=== PATIENT | male | born 1960 | race Caucasian/White ===

== ENCOUNTER → 2017-06-20 08:13 | Outpatient (CLI) | payer OTHER, SELFPAY ==
--- NOTE | 2017-06-20 09:00 | RAD_ITS ---
STUDY: X-RAY - THORACIC SPINE REASON FOR EXAM: Male, 57 years old. Back pain for several weeks. TECHNIQUE: History view(s) of the thoracic spine were obtained. COMPARISON: None. FINDINGS: Normal kyphosis of the thoracic spine. There is no substantial scoliosis. There is multilevel endplate spondylosis of the thoracic vertebrae. There is multilevel disc space narrowing of the thoracic spine. There is no evidence of acute fracture or loss of vertebral axial height. The soft tissue structures are unremarkable. RAD/Thoracic Spine 3 Views IMPRESSION: Degenerative changes along the thoracic spine. Electronically Signed: Alex Escobar DO at 16:51 EDT Tel [phone], Service support ,
== END ==
PROVIDERS: Family Provider Family Medicine; PCP Family Medicine; Visit Provider Family Medicine
DX: M54.6 Pain in thoracic spine (principal)
CPT/HCPCS: 72072

== ENCOUNTER → 2017-07-19 09:43 | Outpatient (CLI) | payer OTHER, SELFPAY ==
--- NOTE | 2017-07-19 09:43 | DT_ITS ---
This patient was seen during an EMR downtime July 15, 2017 - July 22, 2017. This patient may have a combination of paper and electronic documentation or all paper documentation. All documentation is viewable within the e-chart portion of [employer] for each patient visit.
[2017-07-19 14:22] LABS: PSA,Total - Annual Screen 3.45 ng/mL (0.00-4.00)
== END ==
PROVIDERS: Family Provider Family Medicine; PCP Family Medicine; Visit Provider Urology
DX: Z12.5 Encounter for screening for malignant neoplasm of prostate (principal)
CPT/HCPCS: 36415; 84153; G0103

== ENCOUNTER → 2018-01-16 09:25 | Outpatient (CLI) | payer OTHER, SELFPAY ==
--- NOTE | 2018-01-16 09:29 | RAD_ITS ---
STUDY: X-RAY - RIGHT KNEE REASON FOR EXAM: Male, 57 years old. Pain, no known injury TECHNIQUE: 4 view(s) of the knee. COMPARISON: None. FINDINGS: Normal visualized distal femur. Normal visualized proximal tibia and fibula. Normal proximal tibiofibular articulation. There is mild degenerative arthrosis of the medial femorotibial compartment. There is mild degenerative arthrosis of the lateral femorotibial compartment. There is mild degenerative arthrosis of the patellofemoral articulation. The soft tissue structures are unremarkable. RAD/Knee 4 or More Views IMPRESSION: Mild tricompartmental degenerative changes of the right knee. Electronically Signed: Shashi Pittman MD at 22:28 EST , Service support ,
== END ==
PROVIDERS: Family Provider Family Medicine; PCP Family Medicine; Referring Provider Family Medicine; Visit Provider Family Medicine
DX: M25.561 Pain in right knee (principal)
CPT/HCPCS: 73564

== ENCOUNTER → 2018-02-20 09:17 | Outpatient (CLI) | payer OTHER, SELFPAY ==
[2018-02-20 10:59] LABS: ALB/GLOB Ratio 1.1 RATIO (0.9-2.4); AST(SGOT) 21 U/L (15-37); Alanine Aminotransfer ALT/SGPT 43 U/L (16-61); Albumin, Serum 3.8 g/dL (3.2-5.0); Alkaline Phosphatase 85 U/L (45-117); Anion Gap 11 (5-15); BUN 12 mg/dL (7-18); BUN/Creat Ratio 15.4 RATIO (10-20); Calcium,Total 8.9 mg/dL (8.5-10.1); Chloride 103 mmol/L (98-107); Cholesterol 142 mg/dL (200); Creatinine, Serum 0.78 mg/dL (0.70-1.30); EST Glomerular Filtration Rate 110 mL/min (>60); Est Glom Filt Rate - Afr Amer 133 mL/min (>60); Globulin 3.5 g/dL (2.2-4.2); Glucose 112 mg/dL (74-106); High Density Lipoprotein 53 mg/dL; Protein, Total 7.3 g/dL (6.4-8.2); Sodium Level 140 mmol/L (136-145); Thyroid Stim Hormone (TSH) 1.09 uIU/mL (0.358-3.74); Triglycerides 80 mg/dL; Very Low Density Lipoprotein 16 mg/dL (5-40)
== END ==
PROVIDERS: Family Provider Family Medicine; PCP Family Medicine; Visit Provider Family Medicine
DX: E11.9 Type 2 diabetes mellitus without complications (principal); Z12.5 Encounter for screening for malignant neoplasm of prostate
CPT/HCPCS: 36415; 80053; 80061; 84403; 84443

== ENCOUNTER → 2019-03-12 09:39 | Outpatient (CLI) | payer OTHER, SELFPAY ==
[2019-03-12 12:45] LABS: ALB/GLOB Ratio 1.2 RATIO (0.9-2.4); AST(SGOT) 16 U/L (15-37); Alanine Aminotransfer ALT/SGPT 39 U/L (16-61); Albumin, Serum 3.8 g/dL (3.2-5.0); Alkaline Phosphatase 88 U/L (45-117); Anion Gap 7 (5-15); BUN 14 mg/dL (7-18); BUN/Creat Ratio 18.4 RATIO (10-20); Chloride 104 mmol/L (98-107); Creatinine, Serum 0.76 mg/dL (0.70-1.30); EST Glomerular Filtration Rate 113 mL/min (>60); Est Glom Filt Rate - Afr Amer 136 mL/min (>60); Globulin 3.2 g/dL (2.2-4.2); Glucose 101 mg/dL (74-106); PSA,Total - Annual Screen 4.54 ng/mL (0.00-4.00); Potassium 4.4 mmol/L (3.5-5.1); Sodium Level 139 mmol/L (136-145); Thyroid Stim Hormone (TSH) 0.95 uIU/mL (0.358-3.74)
== END ==
PROVIDERS: PCP Family Medicine; Referring Provider Family Medicine; Visit Provider Family Medicine
DX: E11.9 Type 2 diabetes mellitus without complications (principal); Z12.5 Encounter for screening for malignant neoplasm of prostate
CPT/HCPCS: 36415; 80053; 84153; 84443; G0103

== ENCOUNTER → 2019-08-24 16:25 | Outpatient (CLI) | payer OTHER, SELFPAY | PROVIDERS: PCP Family Medicine; Referring Provider Nurse Practitioner Adult Health; Visit Provider Nurse Practitioner Adult Health | DX: R97.20 Elevated prostate specific antigen [PSA] (principal) | CPT/HCPCS: 36415; 84153 ==

== ENCOUNTER → 2019-09-29 | Outpatient (CLI) | payer OTHER, SELFPAY ==
--- NOTE | 2019-09-29 | IMM_PTH ---
PATIENT: MELISA ACHARYA LOC: [place] U#:[id number] AGE/SX: 59/M ROOM: RE09/29/[address]: Dr. Wesley Hall MD : 1960 BED: DIS: 09/29/2019 SPEC #: [id number] RECD: 09/30/19 12:22 STATUS: HAYES RELaura #: [id number] ROSHAN: 09/29/19 00:[address]: Wesley Hall DEPT: IMMUNOHISTOCHEMISTRY RECD BY: Swati Davis ENTERED: 09/30/19 12:24 SP TYPE: IMMUNO OTHR DR: Dr. Zackery Huber MD Tissues: D - PROSTATE LEFT E - PROSTATE LEFT Procedures: 34BE12 (add) P40 (add) 34BE12 (initial) PHYSICIAN & INSTITUTION [place] [id number] SPECIMEN INFORMATION: Tissue Source: D - Left prostate, apex, core biopsy, E - Left prostate, mid, core biopsy Clinical Info: Elevated PSA Specimen Number: [id number] D & E CPT code: 24820, 50107 x3 METHODOLOGY: Deparaffinized sections of prefer/formalin-fixed tissue or PAP/DQ stained slides are incubated with monoclonal/polyclonal antibodies/oligonucleotide probes. Localization is made via biotin free immunoperoxidase method. Appropriate controls are performed and reacted as expected. Results on target cell population are indicated in the following table: RESULTS: ANTIBODY / CLONE RESULT Block D P40 (BC28) negative 34BE12 (34BE12) negative Block E P40 (BC28) negative 34BE12 (34BE12) negative These tests were developed and their performance characteristics determined by [facility]. They may not have been cleared or approved by the U.S. Food and Drug Administration. The FDA has determined that such clearance or approval is not necessary. The above immunohistochemical/dualISH markers are ordered and reviewed by the Pathologist. INTERPRETATION: D. Left prostate, apex, core biopsy: Focal atypical small acinar proliferation. See comment. E. Left prostate, mid, core biopsy: Focal atypical small acinar proliferation. See comment. EVELINA:kaylan 10/01/19 Comment: D & E - Atypical focus consists of 2-3 glands and shows minimal atypia.
--- NOTE | 2019-09-29 08:00 | PROSBIL_PTH ---
PATIENT: MELISA ACHARYA LOC: [place] U#:[id number] AGE/SX: 59/M ROOM: RE09/29/[address]: Dr. Wesley Hall MD : 1960 BED: DIS: 09/29/2019 SPEC #: [id number] RECD: 09/29/19 12:47 STATUS: HAYES RELaura #: [id number] ROSHAN: 09/29/19 08:[address]: Wesley Hall DEPT: SURGICAL PATHOLOGY RECD BY: Gary Jang ENTERED: 09/29/19 12:48 SP TYPE: PROST BX LOREE DR: Dr. Zackery Huber MD Tissues: A - PROSTATE RIGHT B - PROSTATE RIGHT C - PROSTATE RIGHT D - PROSTATE LEFT E - PROSTATE LEFT F - PROSTATE LEFT Procedures: PROSTATE BX HEADER OPERATION: Prostate biopsy PRE-OP DIAGNOSIS: Elevated PSA TISSUE SUBMITTED: A - Right apex, B - Right mid, C - Right base, D - Left apex, E - Left mid, F - Left base MICROSCOPIC DIAGNOSIS A. Right prostate, apex, core biopsy: Prostatic tissue, negative for malignancy. B. Right prostate, mid, core biopsy: Prostatic tissue, negative for malignancy. Focal mild acute and chronic inflammation. C. Right prostate, base, core biopsy: Focal minimal high-grade prostatic intraepithelial neoplasia (HGPIN). Focal mild acute and chronic inflammation. D. Left prostate, apex, core biopsy: Focal atypical small acinar proliferation (TONY). See comment. E. Left prostate, mid, core biopsy: Focal atypical small acinar proliferation (TONY). Focal mild chronic inflammation. See comment. F. Left prostate, base, core biopsy: Prostatic tissue, negative for malignancy. SJ:kaylan 09/30/19 COMMENT D & E. Immunohistochemistry ([id number]) supports the above diagnosis. Atypical focus consists of only 2-3 glands and shows minimal atypia. MICROSCOPIC DESCRIPTION Slides are reviewed. GROSS DESCRIPTION A - Received is one container designated prostate, right apex. The specimen consists of one elongated fragment of light mauro-white soft tissue measuring 1 cm in length and 0.1 cm in diameter. The specimen is totally submitted in one cassette. B - Received is one container designated prostate, right mid. The specimen consists of three elongated fragments of light mauro-white soft tissue measuring 0.5 to 1.5 cm in length and 0.1 cm in diameter. The specimen is totally submitted in one cassette. C - Received is one container designated prostate, right base. The specimen consists of two elongated fragments of light mauro-white soft tissue each measuring 1.3 cm in length and 0.1 cm in diameter. The specimen is totally submitted in one cassette. D - Received is one container designated prostate, left apex. The specimen consists of one elongated fragment of light mauro-white soft tissue measuring 0.7 cm in length and 0.1 cm in diameter. The specimen is totally submitted in one cassette. E - Received is one container designated prostate, left mid. The specimen consists of two elongated fragments of light mauro-white soft tissue each measuring 1.2 cm in length and 0.1 cm in diameter. The specimen is totally submitted in one cassette. F - Received is one container designated prostate, left base. The specimen consists of two elongated fragments of light mauro-white soft tissue each measuring 1.2 cm in length and 0.1 cm in diameter. The specimen is totally submitted in one cassette. / SJ:rg 09/29/19 TC:5 CPT: 83084 x6
== END | disposition home or self-care (01) ==
LOC: LABSPEC 11:14
PROVIDERS: PCP Family Medicine; Referring Provider Urology; Visit Provider Urology
DX: R97.20 Elevated prostate specific antigen [PSA] (principal)
CPT/HCPCS: 88305; 88341; 88342; G0416

== ENCOUNTER → 2019-10-16 08:08 | Outpatient (CLI) | payer OTHER, SELFPAY ==
--- NOTE | 2019-10-16 08:11 | CT_ITS ---
STUDY: CT ABDOMEN AND PELVIS WITHOUT CONTRAST REASON FOR EXAM: Male, 59 years old. Bladder calculus POSSIBLY FOUND ON SCOPE RADIATION DOSAGE (If Supplied By Facility): CTDIvol = ( 19.06 ) mGy, DLP = ( 1128.67 ) mGycm TECHNIQUE: Transaxial images were obtained from the dome of the diaphragm to the symphysis pubis without oral contrast, and without intravenous contrast. Sagittal and coronal images were reconstructed. Individualized dose optimization techniques were used for this CT. COMPARISON: None. FINDINGS: Minimal increased markings at the lung bases suggestive of mild degree of scarring. The visualized portions of the heart are within normal limits. Normal liver. Normal gallbladder and extrahepatic biliary system. Normal spleen. Normal pancreas. Normal bilateral adrenal glands. Normal right kidney. Normal left kidney. There is a small hiatal hernia. Normal small intestine. There are scattered colonic diverticula consistent with diverticulosis. The appendix is visualized and appears normal. Normal abdominal aorta. Normal inferior vena cava. Normal retroperitoneum. Normal urinary bladder. There is enlargement of the prostate gland. Prostatic calcifications. It measures 6.3 cm x 6.6 cm. This causes an indentation at the bladder base. There is a 7 mm calculus at the base of the bladder on the left side just distal to the ureterovesical junction. Tiny calculi are also seen along the posterior aspect of the bladder base. There is a small umbilical hernia containing fat. There are degenerative changes of the visualized lumbar spine. CT/Abdomen/Pelvis without Cont IMPRESSION: Multiple bladder stones. Electronically Signed: Emmett Rudd, at 9:10 EDT , Service support ,
== END ==
PROVIDERS: PCP Family Medicine; Referring Provider Urology; Visit Provider Urology
DX: N21.0 Calculus in bladder (principal)
CPT/HCPCS: 74176

== ENCOUNTER → 2019-10-20 16:45 | Outpatient (CLI) | payer OTHER, SELFPAY ==
--- NOTE | 2019-10-20 16:52 | EKG12_ITS ---
Test Reason : PRE-OP Blood Pressure : / mmHG Vent. Rate : 082 BPM Atrial Rate : 082 BPM P-R Int : 146 ms QRS Dur : 090 ms QT Int : 374 ms P-R-T Axes : 063 -15 044 degrees QTc Int : 436 ms Normal sinus rhythm Normal ECG Confirmed by SOFIA CALDERON, MAYRA ([id number]), desk editor TAMI PAREKH ([id number]) on 10/23/2019 9:13:18 AM Referred By: Wesley Hall Confirmed By:DOMINICK BLACK MD
[2019-10-20 17:08] LABS: Hematocrit 46.8 % (40-54); Hemoglobin 15.2 g/dL (13.0-16.5); Mean Corp Hgb Conc 32.5 g/dL (32-36); Mean Corpuscular Hgb 30.8 pg (27.0-32.0); Mean Corpuscular Volume 94.7 fL (80-94); Mean Platelet Vol. 9.6 fl (6.2-12.0); Platelet Count 314 K/mm3 (150-450); RBC Distribution Width CV 12.3 % (11.6-14.6); Red Blood Count 4.94 M/mm3 (4.6-6.2); White Blood Count 11.8 K/mm3 (4.4-11.0)
[2019-10-20 17:49] LABS: Anion Gap 4 (5-15); BUN 12 mg/dL (7-18); BUN/Creat Ratio 14.9 RATIO (10-20); Calcium,Total 9.4 mg/dL (8.5-10.1); Chloride 110 mmol/L (98-107); EST Glomerular Filtration Rate 105 mL/min (>60); Est Glom Filt Rate - Afr Amer 127 mL/min (>60); Glucose 104 mg/dL (74-106); Potassium 4.1 mmol/L (3.5-5.1); Sodium Level 142 mmol/L (136-145)
== END ==
PROVIDERS: PCP Family Medicine; Referring Provider Urology; Visit Provider Urology
DX: Z11.59 Encounter for screening for other viral diseases (principal); N21.0 Calculus in bladder
CPT/HCPCS: 36415; 80048; 85027; 93005

== ENCOUNTER → 2019-10-22 10:13 | Outpatient (CLI) | payer OTHER, SELFPAY | PROVIDERS: PCP Family Medicine; Referring Provider Urology; Visit Provider Urology | DX: Z11.59 Encounter for screening for other viral diseases (principal) | CPT/HCPCS: 87635; C9803; U0003 ==

== ENCOUNTER → 2019-11-16 08:30 | Outpatient (CLI) | payer OTHER, SELFPAY ==
[2019-11-16 10:21] LABS: ALB/GLOB Ratio 1.1 RATIO (0.9-2.4); AST(SGOT) 17 U/L (15-37); Alanine Aminotransfer ALT/SGPT 31 U/L (16-61); Albumin, Serum 3.8 g/dL (3.2-5.0); Alkaline Phosphatase 84 U/L (45-117); Anion Gap 3 (5-15); BUN 13 mg/dL (7-18); BUN/Creat Ratio 16.1 RATIO (10-20); Chloride 105 mmol/L (98-107); Cholesterol 153 mg/dL (200); Creatinine, Serum 0.81 mg/dL (0.70-1.30); EST Glomerular Filtration Rate 105 mL/min (>60); Est Glom Filt Rate - Afr Amer 127 mL/min (>60); Globulin 3.5 g/dL (2.2-4.2); Glucose 127 mg/dL (74-106); High Density Lipoprotein 64 mg/dL; Potassium 4.5 mmol/L (3.5-5.1); Protein, Total 7.3 g/dL (6.4-8.2); Sodium Level 137 mmol/L (136-145); Thyroid Stim Hormone (TSH) 1.44 uIU/mL (0.358-3.74); Triglycerides 118 mg/dL; Very Low Density Lipoprotein 24 mg/dL (5-40)
== END ==
PROVIDERS: PCP Family Medicine; Visit Provider Family Medicine
DX: E11.9 Type 2 diabetes mellitus without complications (principal)
CPT/HCPCS: 36415; 80053; 80061; 84443

== ENCOUNTER → 2019-11-30 12:28 | Outpatient (CLI) | payer OTHER, SELFPAY ==
--- NOTE | 2019-11-30 13:00 | CT_ITS ---
STUDY: CT RIGHTLOWER EXTREMITY WITHOUT CONTRAST REASON FOR EXAM: Male, 59 years old. RIGHT KNEE REPLACEMENT ON Dec. RADIATION DOSAGE (If Supplied By Facility): CTDIvol = ( 18.62 ) mGy, DLP = ( 1397.27 ) mGycm TECHNIQUE: Thin section transaxial imaging of the ankle was obtained, with sagittal and coronal reconstructed images. Individualized dose optimization techniques were used for this CT. COMPARISON: Right knee x-ray dated January 16, 2018. Hip findings: Normal hip joint without articular joint space narrowing. There is lateral osteoarthritic spurring and subchondral cystic changes of the acetabular rim. Normal labrum. Normal femoral head. Normal femoral neck and intratrochanteric region. No visualized fracture. Normal gluteus minimus, medius and iliopsoas tendons and distal insertions. Normal superior and inferior pubic rami. Normal pubic symphysis. Normal ischial tuberosity. Normal origin of the hamstring tendons. Normal visualized iliac wing, sacroiliac joint, and sacral ala. Normal visualized soft tissue structures of the pelvis. Knee findings: Small corticated ossicle/loose bodies are seen at the periphery of the medial lateral aspects of the knee joint which could be related to degenerative changes or sequela from prior trauma. The medial joint capsule is also slightly distended or the loose bodies are present. There is moderate to severe narrowing in the medial compartment with mild secondary osteoarthritic changes.. Mild cortical spurring is present at the periphery of the lateral compartment. Mild narrowing of patellofemoral compartment with osteophytic spurring and a small joint effusion. No visualized acute fractures. Normal proximal tibiofibular articulation. There is no joint effusion. There is no demonstrated abnormal enhancement. The quadriceps tendon is grossly normal. The patellar tendon is grossly normal. Normal Hoffa''s fat pad. The soft tissues are unremarkable. Ankle findings: Mild to moderate plantar calcaneal spur formation noted. Mild enthesopathy is seen at the Achilles tendon insertion site. There are small corticated ossicles of the plantar fascia which is also thickened at the central cord compatible with sequelae of chronic plantar fasciitis. No visualized fractures. Normal visualized distal tibia and fibula. Normal tibiotalar articulation and talar dome. Normal talus, calcaneus, navicular and cuboid tarsal bones. Normal subtalar, talonavicular and calcaneocuboid articulations. Normal navicular-cuneiform, cuneiform tarsal bones and intercuneiform articulations. Normal tarsometatarsal articulations and visualized metatarsi. The soft tissue structures are grossly normal. CT/Extremity Lower without Contra IMPRESSION: 1. Degenerative changes of the knee and ankle joints. 2. No fracture or osteonecrosis is seen. 3. Unremarkable right hip joint. Electronically Signed: Gaurav Barajas MD at 16:46 EDT , Service support ,
== END ==
PROVIDERS: PCP Family Medicine; Referring Provider Specialist; Visit Provider Specialist
DX: M21.161 Varus deformity, not elsewhere classified, right knee (principal)
CPT/HCPCS: 73700

== ENCOUNTER 2019-12-16 05:24 | Day surgery (SDC) | payer OTHER, SELFPAY ==
[2019-11-30 13:18] LABS: Absolute Lymphocyte Count 2.32 X10^3/uL (0.83-4.51); Absolute Neutrophil Count 5.8 X10^3/uL (2.0-7.7); Basophil# 0.03 X10^3/uL; Basophil% 0.3 % (0-1); Eosinophil# 0.25 X10^3/uL; Eosinophils% 2.8 % (0-5); Hematocrit 46.3 % (40-54); Hemoglobin 14.9 g/dL (13.0-16.5); Lymphocyte # 2.32 X10^3/ul (4.0); Lymphocyte % 25.6 % (19-41); Mean Corp Hgb Conc 32.2 g/dL (32-36); Mean Corpuscular Hgb 30.8 pg (27.0-32.0); Mean Corpuscular Volume 95.9 fL (80-94); Mean Platelet Vol. 9.7 fl (6.2-12.0); Monocyte# 0.69 X10^3/uL; Monocyte% 7.6 % (0-10); NRBC Flagged by Analyzer 0 % (0-5); Neutrophil # 5.75 X10^3/uL (2.7-7.7); Neutrophil % 63.5 % (47-70); Platelet Count 307 K/mm3 (150-450); RBC Distribution Width SD 42.1 fl (35.1-43.9); Red Blood Count 4.83 M/mm3 (4.6-6.2); White Blood Count 9.1 K/mm3 (4.4-11.0)
--- NOTE | 2019-12-01 21:23 | HP.PCM_ITS ---
History and Physical History and Physical [facility] Patient Name: Shashi Chavez : 1960 From: DEBBIE CONNOR PA-C DATE OF SURGERY: 12/16/2019 SCHEDULED PROCEDURE: right total knee arthroplasty HISTORY OF PRESENT ILLNESS: Preoperative history and physical exam was performed on November 30, 2019. This is a 59-year-old male who has been having ongoing pain in his right knee for over 3 years. Patient's pain is been constant and aching. He has increased pain going up and down stairs. His pain is located over the medial joint line. Pain does awaken him at night. He has difficulty getting dressed due to the pain. He is also having difficulty with his work duties due to the pain. Patient has attempted rest, ice, heat, elevation with no relief in symptoms. He has tried previous corticosteroid injections with no relief in symptoms. He underwent Euflexxa injections with no relief in symptoms in February 2019. He denies previous surgery on the right knee. After failing conservative measures and discussing treatment options with Dr. George Michele, the patient does wish to proceed with a right total knee arthroplasty. We are obtaining surgical clearance from the primary care physician Dr. Lindsey. Patient has medical history pertinent for hypertension, type 2 diabetes mellitus, enlarged prostate, and sleep apnea. His most recent A1c was 6.8. He denies chest pain, short of breath, fevers chills, recent infections. REVIEW OF SYSTEMS: ROS: Const: Denies anorexia, anxiety, change in appetite, fever and weight change,hard of hearing, and vision problems. CV: Denies chest pain, heart murmur, irregular heartbeat and peripheral vascular disease. Resp: Reports pneumonia, but denies asthma, cough, sleep apnea, shortness of b reath, tuberculosis and wheezing. GI: Denies constipation, diarrhea, heartburn, nausea, bloody stools and vomiting, and difficulty swallowing. : Denies incontinence. Musculo: Reports leg swelling, trouble walking and weakness and limp. Skin: Denies Raynaud's, history of shingles and tattoo. Neuro: Denies ambulatory dysfunction, dizziness, numbness/tingling and tremor. Psych: Denies anxiety, depression, insomnia, mental illness and stress. Cory/Lymph: Denies anemia, bleeding/bruising tendency and past transfusion. Reviewed, no changes. PAST MEDICAL HISTORY: Advance Care Plan: No Advance Directives Effective Date: 07/03/2018 PMH: Medical Problems: High Blood Pressure, Diabetes, Enlarged Prostate, Sleep Apnea Accidents: None Surgical Hx: Tonsillectomy - (1970) Stone Removed From Bladder - (10/2019) [facility] Anesthesia Complications: None Assistive Devices: Glasses, Cpap Reviewed and updated. 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 Personal Habits: Cigarette Use: Never.Smokeless Tobacco: Never Used Smokeless Tobacco.E-Cigarette Use: Never used.Alcohol: Denies use.Drug Use: Denies Use .Enjoy Exercising: Exercises 1-3 X/Week. Reviewed, no changes. VITALS: Ht: 69 Wt: 247lb Wt k.039 BMI: 36.5 BP: 120/76 Pulse: 80 Resp: 16 T: 97.2 T: 36.2C Pain Level: 5 ALLERGIES: No Known Drug Allergy MEDICATIONS: Oxycodone HCL 5 mg 1-2 tab by mouth every 4 hours, Meloxicam 7.5 mg 1 by mouth twice a day, Famotidine 20 mg 1 by mouth every day, Transderm Scop (1.5 MG) 1 MG/3Days 1 patch behind ear every 3 days, to begin the night before surgery, Metformin HCL 1000 mg 1 by mouth twice a day, Lisinopril 5 mg 1 by mouth every day, Atorvastatin Calcium 20 mg 1 by mouth every day, Finasteride 5 mg 1 by mouth every day, Tamsulosin HCL 0.4 mg 1 by mouth every day PRE-OP EXAM: General appearance:NORMAL Other: Eyes: Conjunctivae and lids: NORMAL Pupils: ERR Ears, Nose, Mouth, and Throat: NORMAL Other: Inspection of lips, teeth and gums: NORMAL Other: Neck: Examination of neck: no masses noted. Respiratory: Assessment of respiratory effort: NORMAL Other: Auscultation of lungs: clear to auscultation no wheezes, rhonchi or rales. Cardiovascular: Auscultation of heart: regular rate and rhythm, no murmurs, gallops or rubs. Exam of carotid arteries: NORMAL Other: Gastrointestinal: Exam of abdomen: soft, nontender, nondistended bowel sounds present. PHYSICAL EXAMINATION: Patient walks with an antalgic gait. Right knee is cool to touch without erythema. He has tenderness to palpation over the right medial joint line. Patient has crepitus with range of motion. Range of motion right knee lacks 5 of full extension and 107 flexion. Patient has correctable varus alignment. 5/5 knee extension. Sensation intact to light touch. IMAGING STUDIES: Previous x-rays of the right knee reveal tricompartmental osteoarthritis with medial joint space narrowing, subchondral sclerosis, osteophyte formation IMPRESSION: 1. Right knee osteoarthritis 2. Hypertension 3. Type 2 diabetes mellitus 4. Enlarged prostate 5. Sleep apnea PLAN: Dr. George Michele did discuss and review with the patient all treatment options including surgical versus nonsurgical options. Patient does wish to proceed with the above-stated procedure. Potential risks, benefits, and complications of the procedure were discussed in detail including but not limited to , infection, nerve and blood vessel damage, persistent pain, numbness, tingling, paresthesias, blood clot, pulmonary embolism, and requirement for possible further surgery. The patient expressed full understanding and has no further questions for the doctor. Patient does agree to proceed with the above-stated procedure and has signed the surgery consent form. We discussed the current risks associated with COVID 19. This does include the risk of exposure while in the hospital. Patient was reassured local hospitals have low infection rates and are taking all necessary precautions to avoid exposure to patients. In addition, we discussed strategies that can be used to help limit exposure including those that limit the patient's time in the hospital. Also using strategies to limit the patient's need for continued inpatient services after being discharged from the hospital. Patient was notified that we will need to comply with any screening or testing the hospital wishes to perform or that surgery may be delayed for any positive results. This dictation was created using voice recognition software. Phonetic and/or grammatical errors may exist. ___ I have re-examined the patient. There are no clinical changes since date of exam. ___ See progress notes for changes. ___ Dictated on admission Date: Time: Signature:
[2019-12-16] VITALS (12 sets, daily range): BP systolic 95–126; BP diastolic 51–72; PULSE 69–83; RESP 14–18; TEMP 36.1–36.9; O2SAT 96–100; BMI 36.1
[2019-12-16 06:10] LABS: Bedside Glucose 254 mg/dL (70-110)
[2019-12-16] MEDS: Celecoxib 200 MG Capsule 400 MG PO (06:14)
[2019-12-16] MEDS: Gabapentin 600 MG Tablet PO (06:15)
[2019-12-16] MEDS: Lactated Ringers 1,000 ML 999 ML IV ×2 (06:15→09:30)
[2019-12-16] MEDS: Lactated Ringers 1,000 ML 75 ML IV (06:15)
[2019-12-16] MEDS: Acetaminophen 500 MG Tablet 1000 MG PO ×2 (06:15→15:16)
[2019-12-16] MEDS: Insulin Lispro 100 UNIT/ML INSULN.PEN SC (06:16)
[2019-12-16] MEDS: Lactated Ringers 1,000 ML 125 ML IV (07:30)
[2019-12-16] MEDS: dexAMETHasone 10 MG/ML Vial IV (07:35)
[2019-12-16] MEDS: Cefazolin 2 GM in 0.9% Normal Saline 100 ML IV (07:35)
--- NOTE | 2019-12-16 08:54 | PCM.OPRPT ---
Report of Operation Date of Procedure: 12/16/19 Pre-Operative Diagnosis: Right knee primary osteoarthritis Post-Operative Diagnosis: Right knee primary osteoarthritis Surgery/Procedure Performed:: Right knee minimally invasive robotic assisted total knee replacement Description of Surgical Findings:: Stable knee with good patella tracking roller pneumatic: Katheryn De La Fuente Type of Anesthesia:: Spinal Anesthesiologist: Marcello Ribeiro Special Medications: 2 g Ancef, 1 g TXA at incision, 1 g TXA closure, 10 mg Decadron, joint cocktail (5 mg Duramorph, 30 mL of 0.5% Ropivicaine, 1000 units of epinephrine, 30 mg of Toradol) Specimen's removed: Bony cuts Drains: 25 Fluids Replaced: 1000 mL crystalloid Description of Procedure: Implants used: 1. Ashlee size 5 triathlon cruciate retaining distal femoral press-fit component 2. Ashlee size 5 press-fit tritanium tibial baseplate 3. [place] X3 9 mm CS polyethylene 4. Ashlee X3 35 mm asymmetric patella Brief history operative indications: 59-year-old m with history of right knee osteoarthritis with radiographic findings with loss of joint space, osteophyte formation and subchondral sclerosis. Failed conservative measures as mentioned in the H&P. Discussion of total knee arthroplasty as well as risk and benefits were discussed the patient including but not limited to blood loss, DVTs, PEs, neurovascular damage, general risk of anesthesia including loss of life, and stiffness or instability were discussed with patient. Patient demonstrated understanding and was able to sign informed consent. Procedure: On the date of procedure patient's right lower extremity was marked in the preoperative area. The patient was then taken back to the operating room where the patient was placed on the table in the supine position. All bony prominences were identified a well-padded. Anesthesia assumed control of the C-spine and airway and remained controlled throughout the remainder of the procedure. A tourniquet was placed on the right upper thigh and the leg was prepped in a sterile fashion. The surgeon then scrubbed at this time .Upon reentering the room right lower extremity was draped in a standard orthopedic fashion. A timeout was then called and everyone agreed upon the side, the site, the procedure to be performed, patient's identity and antibiotics given. Esmarch bandage was used to exsanguinate the extremity and the tourniquet was placed up to 250 mmHg with the knee in flexion. A midline skin incision was made and sharp dissection was taken down through skin subcutaneous tissue and fat. The standard medial parapatellar incision was made and the patella was subluxed laterally. An Appropriate deep MCL release was done and the fat pad was resected. Our attention was then directed to the patella. The patella was everted and a flat resection was made. The knee was then flexed up in 2 femoral pins were placed inside the incision and 2 tibial pins were placed outside the incision in the medial tibia bicortically. Once this was completed the 2 checkpoints in the femur and tibia were placed. Knee was then flexed up and the bony landmarks were registered. Once this was completed knee was taken through range of motion and manually stressed allowing us to a plan for an appropriate tibial cut. The robotic arm was brought into the field sterilely and checkpoint and saw were registered. Based on the patient's deformity the tibial cut was made 2 degrees varus. At this time the tensioner was then placed in the joint and ligament tension was checked at 90 degrees and full extension. Based on the patient's ligamentous tension appropriate adjustments were made to the operative plan and ligament releases were done. Once we were happy with our operative plan with balanced flexion and extension gaps our attention was directed to the femur. The robot was brought into the field sterilely and registered. Posterior condylar cuts, anterior chamfer cuts and anterior cuts were appropriately made for a size 5 femur. When these were completed the saws were switched out in the distal femoral and posterior chamfer cuts were made. Protecting the soft tissue throughout this time. A size 5 tibial base plate was selected. the knee was flexed to 90 degrees and the soft tissues and posterior osteophytes were removed from the joint. 40 cc of the periarticular injection was injected into the posterior medial corner of the joint. The appropriate trials were then placed on the femur and tibia. A trial polyethylene was trialed to ensure proper balancing and stability of the knee. The appropriate tibial internal rotation was then marked with a bovie. Our attention was then directed to the patella. The lug holes were drilled and the patella trial was placed. Patellar tracking was checked and deemed appropriate. Once we were happy lug holes were drilled for the femur and trial components were removed. the tibia was subluxed and pinned into place and the keel was punched and drilled appropriately. Final components were verified and opened, and cement was mixed in a vacuum. [employer] Simplex cement was used. The wound was copiously irrigated with normal saline. When the cement was ready the components were impacted into place starting with the tibia, femur and finally cementing the patella. The trial poly component was placed and the knee was placed in full extension. All excess cement was removed in the process. Once the cement had cured the tracking, alignment and balance were verified and a size 9 mm CS polyethylene component was placed. Once the final components were placed an Irrisept lavage was performed and the wound was copiously irrigated with normal saline solution and the periarticular injection was given. The wound was closed in a layer jacobsen fashion using #1 vicryl interrupted sutures for the arthrotomy, 2-0 interrupted Vicryl suture for the subcuticular layer and elisabeth for final skin closure. A sterile compressive dressing was then placed. The patient was then awakened from anesthesia, transferred to the [place] and transferred to the PACU for recovery. Post op plan DVT ppx: ASA 81mg BID, thigh high compression stockings Follow up: in office in 2 weeks for wound check PT: to start POD #0 at hospital, outpatient PT should be arranged. Due to the complexity of this case robotic arm was used to assist in the surgery to improve accuracy and clinical outcomes. - Complications No intraoperative complications - Admit VTE Documentation VTE Present on Admission: No VTE Mechan Device Prophylaxis: SCD's, Thigh High JESE Hose VTE Pharm Prophylaxis ordered?: Yes
--- NOTE | 2019-12-16 09:32 | RAD_ITS ---
STUDY: X-RAY - RIGHT KNEE REASON FOR EXAM: Male, 59 years old. Postop. TECHNIQUE: 2 view(s) of the knee. COMPARISON: None. FINDINGS: There is a total knee replacement. The prosthetic components are intact and articulate normally with each other. There is no evidence of loosening from the underlying bone. There is no evidence of osseous fracture or destructive osseous pathology. There is air and swelling in the anterior soft tissues with midline skin clips. RAD/Knee 1 or 2 Views IMPRESSION: Status post right TKA. Electronically Signed: Alex Escobar DO at 16:56 EST Tel [phone], Service support ,
[2019-12-16 09:35] LABS: Bedside Glucose 166 mg/dL (70-110)
[2019-12-16] MEDS: oxyCODONE 5 MG Tablet PO (10:54)
[2019-12-16] MEDS: Cefazolin 1 GM/50 ML BAG IV (15:15)
== END 2019-12-16 16:01 | disposition home or self-care (01) ==
LOC: SDC 05:24 → AC 05:25
PROVIDERS: Anesthesiology; PCP Family Medicine; Referring Provider Specialist; Visit Provider Specialist
PROC: 0SRC0JZ Replacement of Right Knee Joint with Synthetic Substitute, Open Approach (ICD-10-PCS; CPT 27447; principal; 2019-12-16 07:00)
DX: M17.11 Unilateral primary osteoarthritis, right knee (principal); E78.00 Pure hypercholesterolemia, unspecified; E11.9 Type 2 diabetes mellitus without complications; I10 Essential (primary) hypertension; N40.0 Benign prostatic hyperplasia without lower urinary tract symptoms; G47.30 Sleep apnea, unspecified; Z79.1 Long term (current) use of non-steroidal anti-inflammatories (NSAID); Z79.84 Long term (current) use of oral hypoglycemic drugs; Z79.899 Other long term (current) drug therapy
CPT/HCPCS: 20985; 27447; 64447; 76942; 36415; 73560; 82962; 83735; 85025; 87081; 87635; 97162; 97166; C1776; C9803; J7120; J2405; U0003

== ENCOUNTER 2020-01-16 17:26 | Emergency (ER) | payer OTHER, SELFPAY ==
[2019-12-16 06:17] VITALS: BMI 36.1
[2020-01-16 17:29] VITALS: BP 145/77; PULSE 74; RESP 14; TEMP 36.2; O2SAT 98; BMI 35.6
--- NOTE | 2020-01-16 17:52 | CT_ITS ---
STUDY: CT ABDOMEN AND PELVIS WITHOUT CONTRAST REASON FOR EXAM: Male, 59 years old. RIGHT GROIN PAIN. Hx of HTN and diabetes. Recent YARELIS knee RADIATION DOSAGE (If Supplied By Facility): CTDIvol = ( 19.14 ) mGy, DLP = ( 1085.36 ) mGycm TECHNIQUE: Transaxial images were obtained from the dome of the diaphragm to the symphysis pubis without oral contrast, and without intravenous contrast. Sagittal and coronal images were reconstructed. Individualized dose optimization techniques were used for this CT. COMPARISON: 10/16/2019. FINDINGS: Lung bases are clear. Heart size is normal. The liver is unremarkable. The gallbladder is contracted. Common duct is not dilated. The spleen and pancreas are unremarkable. The adrenal glands are normal. Normal left kidney. Trace right hydronephrosis. Mild right hydroureter. 3 mm stone in the right ureterovesical junction. The aorta is normal in caliber. There is no free fluid, free air or organized collection. No bowel obstruction or inflammatory change. Normal appendix. Urinary bladder is unremarkable. Normal abdominal wall. Normal osseous structures. CT/Abdomen/Pelvis without Cont IMPRESSION: 1. Right UVJ stone with mild proximal hydroureteronephrosis. Electronically Signed: Wanda Mojica MD at 18:42 EST Tel , Service support ,
--- NOTE | 2020-01-16 17:56 | ED.DCSUM_ITS ---
History of Present Illness Chief Complaint: Male Pain/Injury Informant: Patient Onset: Today Maximum Severity: Mild Narrative: Patient presents complaining of pain to the right lower groin area began around 1 PM today he was watching football he did not injure himself in any way, the pain is associated with an intense urge to void urine he is try to go void urine multiple times with no result, he has had no fever no cough no trauma no back p ain He has a prior history for bladder stones that were removed as part of a prostate biopsy a few months ago by local [facility] he is scheduled to follow back up with them sometime soon. No coronavirus exposures he notices no areas of swelling lump bump or hernia he has no testicular pain but the pain does radiate from the groin into the right testicle Past Medical History - Allergies and Home Meds Allergies/Adverse Reactions: Allergies No Known Allergies Allergy (Verified 01/16/20 17:29) Primary Care Physician: Rajan Huber MD [Primary Care Provider] - Past Medical History: - Smoking Status: Never smoker Review of Systems ROS: - Letter stones and prostate biopsy General: Denies: Chills, Fever, Sweats Eyes: Denies: Visual changes - bilaterally, Diplopia ENT: Denies: Rhinorrhea, Sore throat Cardiovascular: Denies: Chest pain, Palpitations Respiratory: Denies: Dyspnea, Cough, Dyspnea on exertion Gastrointestinal: Denies: Abdominal pain, Nausea, Vomiting, Diarrhea, Melena, Hematochezia Genitourinary: Reports: Frequency. Denies: Dysuria, Hematuria Musculoskeletal: Denies: Back pain, Extremity Pain Skin: Denies: Rash, Wounds Neurological: Denies: Headache, Weakness, Numbness Physical Exam Vital Signs/Narrative: Vital Signs Temp Pulse Resp BP Pulse Ox 01/16/20 17:29 97.1 F L 74 14 145/77 H 98 General: Well nourished, Well developed, No Acute Distress Head: Normocephalic, Atraumatic Eyes: Perrl, EOMI ENT: Moist mucous membranes, No rhinorrhea Neck: Supple, Nontender Cardiovascular: Regular rate, Regular rhythm, No murmurs Respiratory: No distress, CTA bilaterally, Chest nontender Abdomen: Soft, Nontender, Nondistended, Normal bowel sounds : - - exam shows no areas of testicular tenderness swelling or abnormalities the scrotum testicles unremarkable is no signs of hernia he complains of point pain really in the right lower abdomen groin area that shoots into the scrotum, the back is unremarkable the exam is otherwise unremarkable Back: Nontender, Normal Inspection Extremities: Nontender, No edema Skin: Normal color, No rash Neurological: Alert, Oriented x3, Cranial nerves II-XII grossly intact, Normal Strength, Normal Sensation Psychological: Normal affect, Normal Mood Diagnostic/Tx/Re-eval - Medical Decision Making In all the above and his complaints fluids pain management ED screening evaluation CT ED screening evaluation labs generally unremarkable shows reports, CT shows a right UVJ stone see that report on reevaluation is resting comfortably in the bed no distress discussed the above with him he is currently on Flomax he is scheduled to see his urologist [facility] soon he will keep those appointments stent of Flomax Naprosyn Vicodin and return for change in symptoms Home stable Final impression right flank pain related to right UVJ stone ED Disposition - Plan for ED Patient: Diagnosis: Kidney stone on right side Instructions: ED Kidney Stone w/ Colic Prescriptions: Tamsulosin HCl [Flomax] 0.4 mg PO DAILY #7 cap Prescription Printed Naproxen [Naprosyn] 500 mg PO BID PRN #20 tab Prescription Printed Hydrocodone Bitart/Apap 5-325 [[place] 5MG-325MG] 1 tab PO Q4H PRN PRN 2 Days #10 tab PRN Reason: Pain Prescription Printed Referrals: Rajan Huber MD [Primary Care Provider] -
[2020-01-16] MEDS: Ketorolac 15 MG/ML Vial IV (18:03)
[2020-01-16] MEDS: Ondansetron 4 MG/2 ML Vial IV (18:03)
[2020-01-16] MEDS: Morphine 4 MG/ML Syringe IV (18:04)
[2020-01-16 18:10] LABS: Absolute Lymphocyte Count 2.37 X10^3/uL (0.83-4.51); Absolute Neutrophil Count 7.7 X10^3/uL (2.0-7.7); Basophil# 0.04 X10^3/uL; Basophil% 0.4 % (0-1); Eosinophil# 0.18 X10^3/uL; Eosinophils% 1.6 % (0-5); Hematocrit 41.7 % (40-54); Hemoglobin 13.8 g/dL (13.0-16.5); Lymphocyte # 2.37 X10^3/ul (4.0); Lymphocyte % 21.4 % (19-41); Mean Corp Hgb Conc 33.1 g/dL (32-36); Mean Corpuscular Hgb 31.2 pg (27.0-32.0); Mean Corpuscular Volume 94.1 fL (80-94); Mean Platelet Vol. 9.3 fl (6.2-12.0); Monocyte# 0.81 X10^3/uL; Monocyte% 7.3 % (0-10); NRBC Flagged by Analyzer 0 % (0-5); Neutrophil # 7.66 X10^3/uL (2.7-7.7); Platelet Count 314 K/mm3 (150-450); RBC Distribution Width CV 12.1 % (11.6-14.6); Red Blood Count 4.43 M/mm3 (4.6-6.2); White Blood Count 11.1 K/mm3 (4.4-11.0)
[2020-01-16 18:47] LABS: Anion Gap 8 (5-15); BUN 21 mg/dL (7-18); BUN/Creat Ratio 21.3 RATIO (10-20); Calcium,Total 9.2 mg/dL (8.5-10.1); Chloride 108 mmol/L (98-107); Creatinine, Serum 0.98 mg/dL (0.70-1.30); EST Glomerular Filtration Rate 83 mL/min (>60); Est Glom Filt Rate - Afr Amer 101 mL/min (>60); Estimated Creatinine Clearance 83.16 ml/min; Glucose 127 mg/dL (74-106); Potassium 3.9 mmol/L (3.5-5.1); Sodium Level 142 mmol/L (136-145)
[2020-01-16 19:28] LABS: Bacteria 0 SEEN /hpf (None Seen); Squamous Epithelial Cells - UA 0 SEEN /hpf (0-5); White Blood Cells 0 SEEN /hpf (0-5)
[2020-01-16 19:33] LABS: Color, Urine Yellow (Yellow); Glucose, Dipstick Normal (Normal); Ketone-Dipstick 15 mg/dl (Negative); Leukocyte Esterase-Dipstick Negative /ul (Negative); Nitrite-Dipstick Negative (Negative); Occult Blood-Urine 250 /ul (Negative); Protein-Dipstick 30 mg/dl (Negative); Urine Bilirubin Dipstick Negative (Negative); Urine Clarity Clear (Clear); Urine Urobilinogen Normal (Normal)
[2020-01-16 19:58] LABS: Calcium Oxalate Crystals Ur 1+ /hpf (<or=2+); Mucous, Urine 1+ /hpf (<or=2+); Red Blood Cells-Urine 25-50 SEEN /hpf (0-5)
[2020-01-16 20:27] VITALS: BP 135/71; PULSE 80; RESP 18; O2SAT 96
== END 2020-01-16 20:30 | disposition home or self-care (01) ==
LOC: ED 18:07
PROVIDERS: Emergency Provider Emergency Medicine; PCP Family Medicine
DX: N13.2 Hydronephrosis with renal and ureteral calculous obstruction (principal); Z87.442 Personal history of urinary calculi
CPT/HCPCS: 74176; 80048; 81001; 85025; 96374; 96375; 99283; A4216; J2405

== ENCOUNTER → 2020-05-24 16:22 | Outpatient (CLI) | payer OTHER, SELFPAY | PROVIDERS: PCP Family Medicine; Visit Provider Nurse Practitioner Adult Health | DX: R97.20 Elevated prostate specific antigen [PSA] (principal) | CPT/HCPCS: 36415; 84153 ==

== ENCOUNTER 2020-07-20 06:44 | Day surgery (SDC) | payer OTHER, SELFPAY ==
[2020-07-14 11:55] LABS: Hematocrit 44.7 % (40-54); Hemoglobin 14.8 g/dL (13.0-16.5); Mean Corp Hgb Conc 33.1 g/dL (32-36); Mean Corpuscular Hgb 30.6 pg (27.0-32.0); Mean Corpuscular Volume 92.5 fL (80-94); Mean Platelet Vol. 9.4 fl (6.2-12.0); Platelet Count 302 K/mm3 (150-450); RBC Distribution Width CV 12.2 % (11.6-14.6); RBC Distribution Width SD 41.6 fl (35.1-43.9); Red Blood Count 4.83 M/mm3 (4.6-6.2); White Blood Count 8.8 K/mm3 (4.4-11.0)
[2020-07-14 12:06] LABS: Hemoglobin A1c 6.6 % (3.8-5.6)
[2020-07-14 12:57] LABS: Anion Gap 6 (5-15); BUN 12 mg/dL (7-18); BUN/Creat Ratio 13.8 RATIO (10-20); Chloride 106 mmol/L (98-107); Creatinine, Serum 0.87 mg/dL (0.70-1.30); EST Glomerular Filtration Rate 96 mL/min (>60); Est Glom Filt Rate - Afr Amer 116 mL/min (>60); Glucose 115 mg/dL (74-106); Sodium Level 139 mmol/L (136-145)
[2020-07-20] VITALS (10 sets, daily range): BP systolic 98–136; BP diastolic 52–75; PULSE 78–98; RESP 16–18; TEMP 36.1–36.8; O2SAT 93–100; BMI 36.3; BMI 38.5
[2020-07-20] MEDS: Lactated Ringers 1,000 ML 100 ML IV ×2 (07:21→11:00)
[2020-07-20 07:40] LABS: Bedside Glucose 142 mg/dL (70-110)
--- NOTE | 2020-07-20 08:50 | PROS_PTH ---
PATIENT: MELISA [place]CHARYA [place] [facility] [id number] AGE/SX: 60/M ROOM: RE07/20/[address]: Dr. Wesley Hall MD : 1960 BED: DIS: 07/21/2020 SPEC #: [id number] RECD: 07/20/20 11:42 STATUS: HAYES BRANDT #: [id number] ROSHAN: 07/20/20 08:[address]: Wesley Hall DEPT: SURGICAL PATHOLOGY RECD BY: Mini Monaco ENTERED: 07/20/20 12:03 SP TYPE: TURP OTHR DR: Dr. Zackery Huber MD Tissues: Prostate, NOS Procedures: Surgery Specimen Level IV HEADER OPERATION: Cysto, TUR prostate, Olympus, retrograde pyelogram PRE-OP DIAGNOSIS: Bladder stone, BPH TISSUE SUBMITTED: Prostate tissue MICROSCOPIC DIAGNOSIS Prostate tissue, TUR: Benign prostatic hyperplasia, glandular and stromal type. Focal mild chronic inflammation. SJ:kaylan 07/21/2020 MICROSCOPIC DESCRIPTION Slides are reviewed. GROSS DESCRIPTION The specimen consists of Received is one container labeled with the patient's name and designated prostate tissue. The specimen consists of multiple irregular fragments of pink-mauro, rubbery, soft tissue that in aggregate weigh 16.6 gm and measure in aggregate 6 x 6 x 2 cm. Inter Com Installer portions are submitted in 10 cassettes. / AM:kaylan 07/20/20 TC:5 CPT: 70811
[2020-07-20] MEDS: Cefazolin 2 GM in 0.9% Normal Saline 100 ML IV (09:22)
--- NOTE | 2020-07-20 09:24 | PCM.HP.STD ---
HPI - General HPI Narrative MELISA ACHARYA, is a 60 M who presents for laser of some bladder stones bilateral retrograde pyelograms and a transurethral resection of the prostate, in the preoperative setting I discussed with the patient how the surgery is done talked about the risk of scar tissue bladder neck contracture, retrograde ejaculation, bleeding, infection, talk to expectations after surgery that he should be able to urinate better empty his bladder better. Like about risk of bleeding and scar tissue. After drying out the surgery to him and answered all his questions he signed a consent form. [facility] Medical History (Updated 07/20/20 @ 09:[address] Wesley Hall MD) Arthritis Bladder disease CPAP (continuous positive airway pressure) dependence Cyst Diabetes Dietary restriction High cholesterol History of bladder stone History of stress test Hypertension Non-smoker Prostate disease Home Medications atorvastatin 20 mg PO DAILY 11/24/12 [History Last Taken 07/19/20] metformin 1,000 mg PO BIDCM 11/24/12 [History Last Taken 07/19/20] cholecalciferol (vitamin D3) 1,000 unit PO DAILY 12/02/19 [History Last Taken Unknown] lactase 3,000 unit PO .PRN 12/02/19 [History Last Taken Unknown] lisinopril 5 mg PO DAILY 12/02/19 [History Last Taken 07/20/20] ciprofloxacin HCl [Cipro] 500 mg PO BID #14 tab 07/20/20 [Rx Last Taken Unknown] Allergy/AdvReac Type Severity Reaction Status Date / Time No Known Allergies Allergy Verified 07/20/20 07:06 Surgical History (Updated 07/13/20 @ 13:28 by Edith Mccullough) History of tonsillectomy and adenoidectomy History of total knee arthroplasty Hx of colonoscopy Hx of fasciotomy Hx of foot surgery Social History Smoking Status: Never smoker Vital Signs Vital Signs Vital Signs: 07/20/20 07:09 07/20/20 07:12 Temperature 97.7 F L Temperature Source Temporal Pulse Rate 78 Respiratory Rate 18 Respiratory Pattern Normal Blood Pressure 120/70 Blood Pressure Mean 86 Blood Pressure Source Monitor Blood Pressure Position Semi-Fowlers Blood Pressure Location Left Arm Pulse Ox 96 Oxygen Delivery Method Room Air Weight Weight: 111.6 kg Body Mass Index (BMI) 36.3 Physical Exam Const alert and oriented x3 General Appearance: cooperative HEENT normocephalic, head/scalp atraumatic, EAC's normal and TM's normal bilaterally Eyes PERRL and EOMs intact bilaterally Pupil: sluggish Neck no lymphadenopathy, supple and no JVD General: trachea midline Lymph Lymphatic: no lymphadenopathy noted, lymphedema and lymphadenopathy Resp normal respiratory effort, normal air movement and clear to auscultation bilaterally Cardio regular rate, regular rhythm and peripheral pulses 2+ throughout GI soft to palpation, non-tender and non-distended Extremity normal capillary refill and no clubbing, cyanosis or edema General Extremity: no tenderness to palpation of joints or extremities Skin no rashes or lesions noted General Skin Exam: turgor normal Lesions: no lesions Rashes: no rashes Neuro CN's II-XII intact bilaterally Speech: speech normal Motor Exam: strength 5/5 throughout; Negative for general weakness Psych thought process normal, cooperative and affect normal Appearance: appropriate Results Lab / Micro Data Result Diagrams: 07/14/20 11:17 07/14/20 11:17 Labs: Laboratory Results - last 24 hr 07/20/20 07:03 POC Glucose 142 H Micro: Microbiology 07/19/20 08:43 SARS-CoV-2 Antigen (Rapid) - Final Interface Orders Assessment & Plan Assessment/Plan (1) Bladder stone: (2) BPH without obstruction/lower urinary tract symptoms: PLAN: Plan to proceed with laser and removal bladder stone and TURP.
--- NOTE | 2020-07-20 09:26 | PCM.DC ---
Discharge Instructions Diet Discharge Diet: No restrictions Dressing / Incision Call your doctor if your incision/area has: Continuous Slow Oozing, Increased Pain/ Swelling, Increased Redness and Foul Smelling Discharge Call your doctor if you observe: Fever of 101 or Higher, Numbness or Tingling, Shortness of breath, Dizziness, Calf discomfort and Uncontrolled pain Follow Up Care Please Follow Up With: Wesley Hall MD Test Results: Test results from this visit will be discussed in further detail at your follow-up appointment, if applicable. Discharge Plan Admission Primary Reason for Your Visit: shahid Attending Provider: Wesley Hall Primary Care Provider: Rajan Huber Discharge Orders/Prescriptions Prescriptions: New ciprofloxacin HCl [Cipro] 500 mg tablet 500 mg PO BID Qty: 14 RF: 0 Continued metformin 500 MG tablet 1,000 mg PO BIDCM RF: 0 atorvastatin 20 MG tablet 20 mg PO DAILY RF: 0 lisinopril 5 MG tablet 5 mg PO DAILY RF: 0 lactase 3,000 UNIT tablet 3,000 unit PO .PRN RF: 0 Discontinued tamsulosin 0.4 MG capsule 0.4 mg PO QHS RF: 0 finasteride 5 MG tablet 5 mg PO QHS RF: 0 ciprofloxacin HCl [Cipro] 500 mg tablet 500 mg PO BID RF: 0 No Action cholecalciferol (vitamin D3) 1,000 UNIT tablet 1,000 unit PO DAILY RF: 0 Referrals / Follow Up: Rajan Huber MD [Primary Care Provider] - Wesley Hall MD [STAFF PHYSICIAN] -
--- NOTE | 2020-07-20 10:55 | OP.PCM_ITS ---
Report of Operation Date of Procedure: 07/20/20 Pre-Operative Diagnosis: BPH with obstruction, 2 cm bladder stone, gross hematu don Post-Operative Diagnosis: Same Surgery/Procedure Performed:: Cystoscopy, litholapaxy of a 2 cm bladder stone, bilateral retrogrades, transurethral resection of the prostate, interpretation fluoroscopic images Description of Surgical Findings:: Patient was taken back to the operating room at the smooth induction of general anesthesia he was placed supine on the table and then the penis and testicles were prepped and draped in usual sterile fashion, went into the bladder with a visual obturator with the laser bridge and once inside the bladder inspected the anatomy he had a very large obstructive prostate no median lobe length of the prostate was about 2 loops in length, after identifying the anatomy I then used the 400 ?m laser fiber laser the stone which is about 2 cm in size into little tiny pieces. I think cannulated the left and right ureteral orifice and performed a retrograde pyelogram. The retrograde pyelogram of the left side was normal contrast going up to the ureter was normal with normal filling of the collecting system with no filling defects, retrograde pyelogram of the right side was normal contrast going of the ureter was normal with no filling defects images were saved on fluoroscopy. I then switched over to the continuous flow resectoscope and using a large loop I performed a transurethral resection of the prostate he had a large prostate with flopping tissue both in both sides and all this tissue was resected completely down to the verumontanum from the bladder neck at the end of the resection had a wide open channel from the prostate verumontanum into the bladder neck the left and right ureter orifice were uninjured during the procedure I Ellik out all the chips obtain hemostasis put a catheter in the bladder using a catheter guide and then the bladder was put on continuous irrigation and the urine was fairly clear patient anesthetic is being reversed t o be taken back to PACU. Surgeon: Rafael Type of Anesthesia: General Drains: 22fr 3 way Admit VTE Documentation VTE Present on Admission: No VTE Mechan Device Prophylaxis: SCD's
[2020-07-20] MEDS: Cholecalciferol (VIT D3) 25 MCG TABLET (1,000 UNITS) PO (13:06)
[2020-07-20] MEDS: Lisinopril 5 MG Tablet PO (13:06)
[2020-07-20] MEDS: 0.9% Normal Saline 1,000 ML 125 ML IV ×2 (13:06→21:50)
[2020-07-20] MEDS: Ciprofloxacin 400 MG/200 ML BAG 200 MG IV (13:06)
[2020-07-20] MEDS: Ketorolac 15 MG/ML Vial IV ×2 (15:41→21:49)
[2020-07-20] MEDS: metFORMIN HCl 1,000 MG Tablet 1000 MG PO (17:15)
[2020-07-20] MEDS: Atorvastatin Calcium 20 MG Tablet PO (21:49)
[2020-07-21] MEDS: Ciprofloxacin 400 MG/200 ML BAG 200 MG IV (00:39)
[2020-07-21 02:40] VITALS: BP 108/57; PULSE 83; RESP 16; TEMP 36.4; O2SAT 98
[2020-07-21] MEDS: 0.9% Normal Saline 1,000 ML 125 ML IV (04:58)
[2020-07-21] MEDS: Ketorolac 15 MG/ML Vial IV (04:58)
[2020-07-21 06:31] VITALS: BP 118/59; PULSE 72; RESP 16; TEMP 36.8; O2SAT 98
--- NOTE | 2020-07-21 07:21 | PCM.PN.BLA ---
Progress Note doing well stop CBI silva out home after voids
[2020-07-21] MEDS: Cholecalciferol (VIT D3) 25 MCG TABLET (1,000 UNITS) PO (07:51)
[2020-07-21] MEDS: Lisinopril 5 MG Tablet PO (07:51)
[2020-07-21] MEDS: metFORMIN HCl 1,000 MG Tablet 1000 MG PO (07:51)
[2020-07-21 10:09] VITALS: BP 105/59; PULSE 80; RESP 16; TEMP 36.3; O2SAT 99
[2020-07-21 10:11] VITALS: BP 105/59; PULSE 80; RESP 16; TEMP 36.3; O2SAT 99
--- NOTE | 2020-07-21 10:11 | PHA.DC.MC ---
Pharmacy Service has performed discharge medication reconciliation and counseling for this patient. The patient was counseled on the following discharge medications and changes in medications for homegoing were reviewed. 1. CIPROFLOXACIN The Reason for Use, instructions for use, and potential side effects were reviewed for all new medications. The patient's questions regarding all of their medications were answered. The patient was able to verbally demonstrate an understanding of their discharge medications. Home Medications atorvastatin 20 mg PO DAILY 11/24/12 metformin 1,000 mg PO BIDCM 11/24/12 cholecalciferol (vitamin D3) 1,000 unit PO DAILY 12/02/19 lactase 3,000 unit PO .PRN 12/02/19 lisinopril 5 mg PO DAILY 12/02/19 ciprofloxacin HCl [Cipro] 500 mg PO BID #14 tab 07/20/20 The patient's discharge medication list was reviewed for discrepancies and discrepancies were resolved.
== END 2020-07-21 10:44 | disposition home or self-care (01) ==
LOC: SDC 06:44 → AC 06:45 → MS3 11:51
PROVIDERS: Anesthesiology; PCP Family Medicine; Referring Provider Urology; Visit Provider Urology
PROC: (CPT 52317; principal; 2020-07-20 08:40)
DX: R31.0 Gross hematuria (principal); N21.0 Calculus in bladder; N40.1 Benign prostatic hyperplasia with lower urinary tract symptoms; E11.9 Type 2 diabetes mellitus without complications; E78.00 Pure hypercholesterolemia, unspecified; I10 Essential (primary) hypertension; Z79.84 Long term (current) use of oral hypoglycemic drugs; N13.8 Other obstructive and reflux uropathy
CPT/HCPCS: 00914; 52317; 52601; 36415; 76000; 80048; 82962; 83036; 85027; 87426; 88305; C9803; J7030; J7120; J0744; J2405

== ENCOUNTER → 2020-11-17 08:30 | Outpatient (CLI) | payer OTHER, SELFPAY ==
--- NOTE | 2020-11-17 08:57 | RAD_ITS ---
INDICATION: CHEST PAIN EXAMINATION/TECHNIQUE: X-RAY - XR Chest 2 Views COMPARISON: 06/20/2017. FINDINGS: LINES/DEVICES: None. LUNGS: Linear streaky opacities visualized in the lower lung paredes bilaterally suggestive subsegmental atelectatic streaks, no evidence of focal infiltrates or consolidations, the bronchovascular markings are otherwise unremarkable. Unremarkable aeration of bilateral costophrenic angles is seen. . MEDIASTINUM AND CARDIOVASCULAR STRUCTURES: Cardiac silhouette not enlarged. Central airways and mediastinal contour are unremarkable. BONES AND SOFT TISSUES: Degenerative bone changes visualized. Unremarkable. RAD/Chest PA and Lateral IMPRESSION: No radiographic evidence of acute cardiopulmonary disease. Electronically Signed: Tyrone Mccann MD at 10:21 EDT Tel , Service support ,
[2020-11-17 10:15] LABS: PTHIN 25.1 pg/mL (18.4-80.1)
[2020-11-17 10:45] LABS: PSA,Total- Diagnostic 1.87 ng/mL (0.0-4.0)
[2020-11-17 10:55] LABS: Anion Gap 7 (5-15); BUN 16 mg/dL (7-18); Calcium,Total 9.3 mg/dL (8.5-10.1); Chloride 105 mmol/L (98-107); Cholesterol 130 mg/dL (200); Creatinine, Serum 0.84 mg/dL (0.70-1.30); EST Glomerular Filtration Rate 100 mL/min (>60); Est Glom Filt Rate - Afr Amer 121 mL/min (>60); Glucose 117 mg/dL (74-106); High Density Lipoprotein 60 mg/dL; Sodium Level 138 mmol/L (136-145); Thyroid Stim Hormone (TSH) 1.04 uIU/mL (0.358-3.74); Triglycerides 65 mg/dL; Very Low Density Lipoprotein 13 mg/dL (5-40)
== END ==
PROVIDERS: Nurse Practitioner Adult Health; PCP Family Medicine; Referring Provider Family Medicine; Visit Provider Family Medicine
DX: R07.89 Other chest pain (principal); R97.20 Elevated prostate specific antigen [PSA]; E11.9 Type 2 diabetes mellitus without complications; N20.0 Calculus of kidney
CPT/HCPCS: 36415; 71046; 80048; 80061; 82306; 83970; 84153; 84443

== ENCOUNTER → 2021-10-25 | Outpatient (CLI) | payer BC, SELFPAY ==
[2021-10-25 10:19] LABS: Vitamin B12 223 pg/mL (211-911)
[2021-10-25 10:45] LABS: ALB/GLOB Ratio 0.9 RATIO (0.9-2.4); AST(SGOT) 12 U/L (15-37); Alanine Aminotransfer ALT/SGPT 30 U/L (16-61); Albumin, Serum 3.5 g/dL (3.2-5.0); Alkaline Phosphatase 93 U/L (45-117); Anion Gap 7 (5-15); BUN 12 mg/dL (7-18); BUN/Creat Ratio 15.6 RATIO (10-20); Calcium,Total 9.2 mg/dL (8.5-10.1); Chloride 107 mmol/L (98-107); Cholesterol 124 mg/dL (200); Creatinine, Serum 0.77 mg/dL (0.70-1.30); EST Glomerular Filtration Rate 110 mL/min (>60); Est Glom Filt Rate - Afr Amer 133 mL/min (>60); Globulin 3.7 g/dL (2.2-4.2); Glucose 108 mg/dL (74-106); High Density Lipoprotein 51 mg/dL; Potassium 4.1 mmol/L (3.5-5.1); Protein, Total 7.2 g/dL (6.4-8.2); Sodium Level 140 mmol/L (136-145); Thyroid Stim Hormone (TSH) 1.15 uIU/mL (0.358-3.74); Triglycerides 74 mg/dL; Very Low Density Lipoprotein 15 mg/dL (5-40)
== END | disposition home or self-care (01) ==
LOC: MFPLAB 08:21
PROVIDERS: PCP Family Medicine; Referring Provider Family Medicine; Visit Provider Family Medicine
DX: E11.69 Type 2 diabetes mellitus with other specified complication (principal); E78.5 Hyperlipidemia, unspecified
CPT/HCPCS: 36415; 80053; 80061; 82607; 84443

== ENCOUNTER → 2021-11-13 | Outpatient (CLI) | payer BC, SELFPAY ==
[2021-11-13 12:18] LABS: PSA,Total - Annual Screen 2.66 ng/mL (0.00-4.00)
== END | disposition home or self-care (01) ==
LOC: LAB 10:10
PROVIDERS: PCP Family Medicine; Visit Provider Registered Nurse
DX: Z12.5 Encounter for screening for malignant neoplasm of prostate (principal)
CPT/HCPCS: 36415; 84153; G0103

== ENCOUNTER 2022-07-31 19:42 | Emergency (ER) | payer BC, SELFPAY ==
[2022-07-31 19:42] VITALS: BP 152/77; PULSE 80; RESP 16; TEMP 36.4; O2SAT 95; BMI 35.6
--- NOTE | 2022-07-31 19:51 | CT_ITS ---
EXAM: CT ABDOMEN AND PELVIS WITHOUT INTRAVENOUS CONTRAST CLINICAL INDICATION: right flank pain TECHNIQUE: Helically acquired images were obtained of the abdomen and pelvis without intravenous contrast. This CT exam was performed using one or more of the following dose reduction techniques: automated exposure control, adjustment of the mA and/or kV according to patient size, and/or use of iterative reconstruction technique. COMPARISON: 01/16/2020 FINDINGS: LOWER THORAX: Unremarkable. Lung bases are clear. No cardiomegaly. No significant pericardial effusion. ABDOMEN: LIVER: Unremarkable. Homogeneous. GALLBLADDER AND BILE DUCTS: Unremarkable. No calcified gallstones. No gallbladder distention or wall edema. No intra- or extrahepatic biliary ductal dilation. PANCREAS: Unremarkable. No focal cystic mass. SPLEEN: Unremarkable. Normal size without focal cystic or solid mass. ADRENALS: Unremarkable. No nodules. KIDNEYS AND URETERS: There is a nonobstructing right calyceal stone. Normal renal size and position. STOMACH AND BOWEL: Unremarkable. No stomach or bowel distention. No focal inflammatory change. PELVIS: APPENDIX: No evidence of acute appendicitis. BLADDER: Unremarkable. REPRODUCTIVE: Unremarkable as visualized. No mass. ABDOMEN and PELVIS: INTRAPERITONEAL SPACE: Unremarkable. No ascites or other fluid collection. No free air. BONES/JOINTS: Unremarkable. No suspicious lytic or blastic abnormality. SOFT TISSUES: Unremarkable. No discrete abdominal or pelvic wall hernia. VASCULATURE: Unremarkable. Abdominal aorta is non-dilated. LYMPH NODES: Unremarkable. No enlarged lymph nodes. CT/Abdomen/Pelvis without Cont IMPRESSION: No acute findings in the abdomen or pelvis. Electronically Signed: Rodney Truong MD at 20:36 EDT ,
--- NOTE | 2022-07-31 19:52 | EDS_ITS ---
HPI History of Present Illness Chief Complaint: Flank Pain Informant: patient and spouse/S.O. Narrative Narrative: Presents with right flank pain. Patient has had kidney stones in the past. He has seen Dr. Hall and has had lithotripsy. But this has been a while. He started with pain over the weekend on Saturday. Saturday he was feeling little bit better. He was having some pain Saturday and Saturday at work. But then this evening it really increased. Its a lways been on the right flank and radiates between the right flank and the right groin. No trouble urinating. No fevers chills. Very mild nausea but no vomiting. No weakness numbness or tingling. No syncope or presyncope. [facility] Medical History Arthritis Bladder disease CPAP (continuous positive airway pressure) dependence Cyst Diabetes Dietary restriction High cholesterol History of bladder stone History of stress test Hypertension Non-smoker Prostate disease Home Medications atorvastatin 20 mg tablet 20 mg PO DAILY cholesterol 11/24/12 [History Last Taken 07/19/20] metformin 500 mg tablet 1,000 mg PO BIDCM diabetes 11/24/12 [History Last Taken 07/19/20] cholecalciferol (vitamin D3) 25 mcg (1,000 unit) tablet 1,000 unit PO DAILY supplement 12/02/19 [History Last Taken Unknown] lactase 3,000 unit tablet 3,000 unit PO .PRN lactose intolerant 12/02/19 [History Last Taken Unknown] lisinopril 5 mg tablet 5 mg PO DAILY bp 12/02/19 [History Last Taken 07/20/20] mecobalamin (vitamin B12) 1,000 mcg chewable tablet (B12 Active) mcg PO 07/31/22 [History Last Taken Unknown] naproxen 500 mg tablet 500 mg PO BID #14 tabs 07/31/22 [Rx Last Taken Unknown] ondansetron 4 mg disintegrating tablet 4 mg PO Q8H PRN PRN Nausea #10 tabs 07/31/22 [Rx Last Taken Unknown] oxycodone-acetaminophen 5 mg-325 mg tablet 1 tab PO Q6H PRN PRN Pain 3 days #12 TABLETS 07/31/22 [Rx Last Taken Unknown] tamsulosin 0.4 mg capsule (Flomax) 0.4 mg PO DAILY #7 caps 07/31/22 [Rx Last Taken Unknown] Allergy/AdvReac Type Severity Reaction Status Date / Time No Known Allergies Allergy Verified 07/31/22 19:42 Surgical History History of tonsillectomy and adenoidectomy History of total knee arthroplasty Hx of colonoscopy Hx of fasciotomy Hx of foot surgery Social History Smoking Status: Never smoker ROS ROS ED ROS Narrative A complete review of systems was performed and is negative except as documented in the history of present illness. Some specific details below. Constitutional: No recent fevers or chills. EYE: No visual complaints or pain. ENT: No difficulty swallowing. No swelling. No pain. CV: No chest pain or palpitations. Respiratory: No dyspnea. No hemoptysis. No difficulty taking breaths. GI: Please see history of present illness. : No frequency dysuria or hematuria. Also see history of present illness and does have a history of stones. He has been drinking a lot of fluids but is having good urine output with that. Musculoskeletal: No recent trauma. No pains. Skin: No rash. Nondiaphoretic. Neuro: No weakness or numbness. Endocrine: No polyuria or polydipsia. EXAM Physical Exam Narrative Exam Narrative: CONSTITUTIONAL: Patient is nontoxic in appearance. The patient looks mildly uncomfortable. HEENT: No notable trauma. Mucous membranes moist. EYES: No conjunctival injection. CARDIOVASCULAR: Regular rate. Regular rhythm. No notable murmur. No JVD. RESPIRATORY: No respiratory distress. Breathing is unlabored. No wheezes. No rhonchi. No rales. No pain with a deep breath. GASTROINTESTINAL: Mild obesity but not distended. Bowel sounds are normal. No tenderness. No guarding. No rebound. No palpable mass. No bruit. GENITOURINARY: No tenderness over the bladder. He does have right-sided CVA tenderness. But no skin changes or rash. MUSCULOSKELETAL: Atraumatic. No peripheral edema. NEUROLOGICAL: Patient is alert and appropriate. No focal deficit noted. SKIN: No noted rashes. No diaphoresis. PSYCHIATRIC: Patient is calm. Mood is appropriate. Const Vital Signs: 07/31/22 19:42 Temperature 97.6 F L Temperature Source Temporal Pulse Rate 80 Respiratory Rate 16 Blood Pressure 152/77 H Blood Pressure Mean 102 Pulse Ox 95 MDM MDM MDM Narrative Medical decision making narrative: Patient CBC shows minimal nonspecific elevation of white count. Remainder of CBC is normal. Electrolytes show no acute electrolyte abnormalities or kidney dysfunction. Glucose was mildly up at 190. Urinalysis shows no sign of infection. No blood is actually seen at this time. My independent reading patient's CT scan of the abdomen does show what appears to be a stone really perch within the wall of the bladder. There appears to be a little bit of the fullness in the bladder in that area but this may be overlying with prostate. There is no significant hydroureter ureter. Final reading pending at this time. Final reading shows really normal CT. However, I do see a calcification near the base of the bladder that is consistent with his patient's past and current history and his symptoms. I think this likely does represent a stone. But he is able to urinate. No sign of infection. We will have him follow-up with his urologist. He has urine strainer at home. We will write for meds for pain. He is doing better at this time. We discussed returning with worsening pain, vomiting, fevers, inability to urinate or other complaints. Lab Data Attestation: I reviewed the patient's lab results. Labs: Laboratory Results - last 24 hr 07/31/22 07/31/22 07/31/22 19:49 19:53 19:53 WBC 11.6 H RBC 5.02 Hgb 15.5 Hct 46.0 MCV 91.6 MCH 30.9 MCHC 33.7 RDW Std Deviation 41.9 RDW Coeff of [place] 12.6 Plt Count 310 MPV 9.2 Immature Gran % (Auto) 0.200 Neut % (Auto) 61.6 Lymph % (Auto) 28.1 [place] % (Auto) 6.5 Eos % (Auto) 3.2 Baso % (Auto) 0.4 Absolute Neuts (auto) 7.2 Absolute Lymphs (auto) 3.26 Nucleated RBC % 0 Sodium 140 Potassium 3.7 Chloride 104 Carbon Dioxide 29.0 Anion Gap 7 BUN 13 Creatinine 1.00 Estim Creat Clear Calc 78.56 Est GFR (MDRD) Af Amer 98 Est GFR (MDRD) Non-Af 81 BUN/Creatinine Ratio 13.0 Glucose 190 H Calcium 9.8 Urine Color Yellow Urine Clarity Clear Urine pH 6.5 Ur Specific [place] 1.010 Urine Protein Negative Urine Glucose (UA) Normal Urine Ketones Negative Urine Occult Blood Negative Urine Nitrite Negative Urine Bilirubin Negative Urine Urobilinogen Normal Ur Leukocyte Esterase Negative Urine RBC 0 SEEN Urine WBC 0 SEEN Ur Squamous Epith Cells 0 SEEN Urine Bacteria 0 SEEN Urine Mucus 0 SEEN Radiography Diagnostic Testing: Clinical Impression(s) from Imaging Studies Abdomen/Pelvis CT 07/31/22 19:51 IMPRESSION: No acute findings in the abdomen or pelvis. Electronically Signed: Rodney Truong MD at 20:36 EDT , Discharge Plan Triage Chief Complaint: Flank Pain ED Provider: Moris Jaocbo Dx/Rx/DC Orders Clinical Impression: Bladder stone, Acute right flank pain Instructions: ED Kidney Stone w/ Colic Prescriptions: New oxycodone-acetaminophen [oxycodone-acetaminophen] 5-325 mg tablet 1 tab PO Q6H PRN PRN (Reason: Pain) 3 Days Qty: 12 0RF ondansetron [ondansetron] 4 mg tablet,disintegrating 4 mg PO Q8H PRN PRN (Reason: Nausea) Qty: 10 0RF naproxen 500 mg tablet 500 mg PO BID Qty: 14 0RF tamsulosin [Flomax] 0.4 mg capsule 0.4 mg PO DAILY Qty: 7 0RF No Action metformin 500 MG tablet 1,000 mg PO BIDCM atorvastatin 20 MG tablet 20 mg PO DAILY lisinopril 5 MG tablet 5 mg PO DAILY cholecalciferol (vitamin D3) 1,000 UNIT tablet 1,000 unit PO DAILY lactase 3,000 UNIT tablet 3,000 unit PO .PRN mecobalamin (vitamin B12) [B12 Active] 1,000 mcg Tablet,Chewable PO Primary Care Provider: Rajan Huber Referrals: Rajan Huber MD [Primary Care Provider] - Wesley Hall MD [Med Staff - Active Staff] - 2 Days Disposition Disposition: Home, Self Care
[2022-07-31 20:00] LABS: Bacteria 0 SEEN /hpf (None Seen); Mucous, Urine 0 SEEN /hpf (<or=2+); Red Blood Cells-Urine 0 SEEN /hpf (0-5); Squamous Epithelial Cells - UA 0 SEEN /hpf (0-5); White Blood Cells 0 SEEN /hpf (0-5)
[2022-07-31 20:03] LABS: Absolute Lymphocyte Count 3.26 X10^3/uL (0.83-4.51); Absolute Neutrophil Count 7.2 X10^3/uL (2.0-7.7); Basophil# 0.05 X10^3/uL; Basophil% 0.4 % (0-1); Eosinophil# 0.37 X10^3/uL; Eosinophils% 3.2 % (0-5); Hemoglobin 15.5 g/dL (13.0-16.5); Lymphocyte # 3.26 X10^3/ul (0.83-4.51); Lymphocyte % 28.1 % (19-41); Mean Corp Hgb Conc 33.7 g/dL (32-36); Mean Corpuscular Hgb 30.9 pg (27.0-32.0); Mean Corpuscular Volume 91.6 fL (80-94); Mean Platelet Vol. 9.2 fl (6.2-12.0); Monocyte# 0.76 X10^3/uL; Monocyte% 6.5 % (0-10); NRBC Flagged by Analyzer 0 % (0-5); Neutrophil # 7.16 X10^3/uL (2.7-7.7); Neutrophil % 61.6 % (47-70); Platelet Count 310 K/mm3 (150-450); RBC Distribution Width CV 12.6 % (11.6-14.6); RBC Distribution Width SD 41.9 fl (35.1-43.9); Red Blood Count 5.02 M/mm3 (4.6-6.2); White Blood Count 11.6 K/mm3 (4.4-11.0)
[2022-07-31] MEDS: Ondansetron 4 MG/2 ML Vial IV (20:03)
[2022-07-31] MEDS: Ketorolac 15 MG/ML Vial IV (20:03)
[2022-07-31] MEDS: Morphine 4 MG/ML Syringe IV (20:04)
[2022-07-31] MEDS: 0.9% Normal Saline 1,000 ML 1000 ML IV (20:04)
[2022-07-31 20:06] LABS: Color, Urine Yellow (Yellow); Glucose, Dipstick Normal (Normal); Ketone-Dipstick Negative (Negative); Leukocyte Esterase-Dipstick Negative /ul (Negative); Nitrite-Dipstick Negative (Negative); Occult Blood-Urine Negative /ul (Negative); Protein-Dipstick Negative (Negative); Urine Bilirubin Dipstick Negative (Negative); Urine Clarity Clear (Clear); Urine Urobilinogen Normal (Normal); Urine pH 6.5 (5.0 - 8.0)
[2022-07-31 20:35] LABS: Anion Gap 7 (5-15); BUN 13 mg/dL (7-18); Calcium,Total 9.8 mg/dL (8.5-10.1); Chloride 104 mmol/L (98-107); EST Glomerular Filtration Rate 81 mL/min (>60); Est Glom Filt Rate - Afr Amer 98 mL/min (>60); Estimated Creatinine Clearance 78.56 ml/min; Glucose 190 mg/dL (74-106); Potassium 3.7 mmol/L (3.5-5.1); Sodium Level 140 mmol/L (136-145)
[2022-07-31 21:11] VITALS: RESP 16
== END 2022-07-31 21:50 | disposition home or self-care (01) ==
PROVIDERS: Emergency Provider Emergency Medicine; PCP Family Medicine; Visit Provider Emergency Medicine
DX: N21.0 Calculus in bladder (principal); R10.9 Unspecified abdominal pain; E78.00 Pure hypercholesterolemia, unspecified; I10 Essential (primary) hypertension; Z79.899 Other long term (current) drug therapy; Z79.84 Long term (current) use of oral hypoglycemic drugs
CPT/HCPCS: 74176; 80048; 81001; 85025; 96361; 96374; 96375; 99283; J7030; A4216; J2405

== ENCOUNTER → 2022-12-06 | Outpatient (CLI) | payer BC, SELFPAY ==
[2022-12-06 11:31] LABS: Vitamin B12 1296 pg/mL (211-911)
[2022-12-06 11:47] LABS: AST(SGOT) 26 U/L (15-37); Alanine Aminotransfer ALT/SGPT 45 U/L (16-61); Albumin, Serum 3.5 g/dL (3.2-5.0); Alkaline Phosphatase 87 U/L (45-117); Anion Gap 6 (5-15); BUN 16 mg/dL (7-18); Calcium,Total 8.9 mg/dL (8.5-10.1); Chloride 106 mmol/L (98-107); Cholesterol 120 mg/dL (200); Creatinine, Serum 0.84 mg/dL (0.70-1.30); EST Glomerular Filtration Rate 99 mL/min (>60); Est Glom Filt Rate - Afr Amer 120 mL/min (>60); Globulin 3.6 g/dL (2.2-4.2); Glucose 122 mg/dL (74-106); High Density Lipoprotein 46 mg/dL; Potassium 4.3 mmol/L (3.5-5.1); Protein, Total 7.1 g/dL (6.4-8.2); Sodium Level 139 mmol/L (136-145); Thyroid Stim Hormone (TSH) 0.84 uIU/mL (0.358-3.74); Triglycerides 98 mg/dL; Very Low Density Lipoprotein 20 mg/dL (5-40)
== END | disposition home or self-care (01) ==
LOC: MFPLAB 08:13
PROVIDERS: PCP Family Medicine; Visit Provider Family Medicine
DX: E11.65 Type 2 diabetes mellitus with hyperglycemia (principal)
CPT/HCPCS: 36415; 80053; 80061; 82607; 84443

== ENCOUNTER → 2023-01-08 | Outpatient (CLI) | payer BC, SELFPAY ==
[2023-01-08 16:35] LABS: PSA,Total - Annual Screen 2.57 ng/mL (0.00-4.00)
== END | disposition home or self-care (01) ==
LOC: LAB 15:46
PROVIDERS: PCP Family Medicine; Visit Provider Nurse Practitioner
DX: Z12.5 Encounter for screening for malignant neoplasm of prostate (principal)
CPT/HCPCS: 36415; 84153; G0103

== ENCOUNTER → 2023-07-10 | Outpatient (CLI) | payer OTHER, SELFPAY ==
[2023-07-10 11:17] LABS: ALB/GLOB Ratio 1.1 RATIO (0.9-2.4); AST(SGOT) 16 U/L (15-37); Alanine Aminotransfer ALT/SGPT 32 U/L (16-61); Albumin, Serum 3.8 g/dL (3.2-5.0); Alkaline Phosphatase 90 U/L (45-117); Anion Gap 8 (5-15); BUN 13 mg/dL (7-18); Calcium,Total 9.5 mg/dL (8.5-10.1); Chloride 105 mmol/L (98-107); Cholesterol 137 mg/dL (200); Creatinine, Serum 0.81 mg/dL (0.70-1.30); EST Glomerular Filtration Rate 102 mL/min (>60); Est Glom Filt Rate - Afr Amer 124 mL/min (>60); Globulin 3.6 g/dL (2.2-4.2); Glucose 111 mg/dL (74-106); High Density Lipoprotein 56 mg/dL; Potassium 4.2 mmol/L (3.5-5.1); Protein, Total 7.4 g/dL (6.4-8.2); Sodium Level 136 mmol/L (136-145); Thyroid Stim Hormone (TSH) 1.17 uIU/mL (0.358-3.74); Triglycerides 60 mg/dL; Very Low Density Lipoprotein 12 mg/dL (5-40)
[2023-07-10 17:21] LABS: Vitamin B12 588 pg/mL (211-911)
== END | disposition home or self-care (01) ==
LOC: MFPLAB 09:21
PROVIDERS: PCP Family Medicine; Visit Provider Family Medicine
DX: E11.65 Type 2 diabetes mellitus with hyperglycemia (principal); E53.8 Deficiency of other specified B group vitamins
CPT/HCPCS: 36415; 80053; 80061; 82607; 84403; 84443

== ENCOUNTER → 2023-08-13 | Outpatient (CLI) | payer OTHER, SELFPAY ==
--- NOTE | 2023-08-13 09:59 | RAD_ITS ---
STUDY: X-RAY CHEST REASON FOR EXAM: Male, 63 years old. Chronic chest congestion. TECHNIQUE: Frontal and lateral views of the chest on 3 images. COMPARISON: November 17, 2020 FINDINGS: Stable mild hyperinflation with scattered healed parenchymal granulomatous changes and scarring in both lower lobes. There is no demonstrated pleural abnormality. Stable borderline cardiomegaly. Normal mediastinum and kanu. Normal visualized pulmonary arteries. Aortic tortuosity unchanged. Diffuse thoracic osteopenia with mild diffuse spondylosis. Normal visualized ribs, clavicles, and shoulders. No abnormality of the visualized soft tissue structures of the upper abdomen. RAD/Chest PA and Lateral IMPRESSION: Stable chest with no acute or active cardiopulmonary disease. Electronically Signed: Brett Kelly MD at 10:40 EDT ,
== END | disposition home or self-care (01) ==
LOC: MTRAD 09:59
PROVIDERS: PCP Family Medicine; Referring Provider Family Medicine; Visit Provider Family Medicine
DX: R09.89 Other specified symptoms and signs involving the circulatory and respiratory systems (principal)
CPT/HCPCS: 71046

== ENCOUNTER → 2024-01-16 | Outpatient (CLI) | payer OTHER, SELFPAY ==
[2024-01-16 09:20] LABS: PSA,Total - Annual Screen 2.85 ng/mL (0.00-4.00)
== END | disposition home or self-care (01) ==
LOC: LAB 08:26
PROVIDERS: PCP Family Medicine; Referring Provider Nurse Practitioner; Visit Provider Nurse Practitioner
DX: Z12.5 Encounter for screening for malignant neoplasm of prostate (principal)
CPT/HCPCS: 84153; G0103

== ENCOUNTER → 2024-07-01 | Outpatient (CLI) | payer OTHER, SELFPAY ==
[2024-07-01 07:11] LABS: Hemoglobin A1c 6.4 % (<=5.6)
[2024-07-01 07:28] LABS: Cholesterol 123 mg/dL (<=200); High Density Lipoprotein 55 mg/dL; Low Density Lipoprotein Calc. 57 mg/dL; Triglycerides 59 mg/dL; Very Low Density Lipoprotein 12 mg/dL (5-40); cholesterol:hdl ratio screen 2.25
[2024-07-01 07:29] LABS: ALB/GLOB Ratio 1.5 RATIO (0.9-2.4); AST(SGOT) 28 U/L (<=37); Alanine Aminotransfer ALT/SGPT 23 U/L (<=46); Albumin, Serum 4.2 g/dL (3.4-4.8); Alkaline Phosphatase 88 U/L (40-129); Anion Gap 10 (5-15); BUN 18 mg/dL (4-19); BUN/Creat Ratio 23.5 RATIO (10-20); Calcium,Total 9.5 mg/dL (7.6-11.0); Carbon Dioxide 23.8 mmol/L (21.0-32.0); Chloride 105 mmol/L (98-108); Creatinine, Serum 0.78 mg/dL (0.70-1.20); EST Glomerular Filtration Rate 101 (>60); Globulin 2.8 g/dL (2.2-4.2); Glucose 108 mg/dL (70-99); Potassium 4.6 mmol/L (3.3-5.1); Protein, Total 6.9 g/dL (5.9-8.4); Sodium Level 139 mmol/L (133-145); Total Bilirubin 0.73 mg/dL (0.00-1.30)
== END | disposition home or self-care (01) ==
LOC: LAB 05:54
PROVIDERS: PCP Family Medicine; Referring Provider Family Medicine; Visit Provider Family Medicine
DX: E11.65 Type 2 diabetes mellitus with hyperglycemia (principal)
CPT/HCPCS: 36415; 80053; 80061; 83036; 84403; 84443

== ENCOUNTER → 2024-07-16 | Outpatient (CLI) | payer OTHER, SELFPAY ==
--- NOTE | 2024-07-16 18:37 | CT_ITS ---
PROCEDURE: ABDOMEN/PELVIS WITHOUT CONT 07/16/2024 REASON FOR EXAM: GROSS HEMATURIA TECHNIQUE: Abdomen and pelvis CT without intravenous contrast. Noncontrast technique limits evaluation of the abdominal and pelvic viscera. Coronal and Sagittal reconstruction series were provided. One or more dose reduction techniques were used (e.g., Automated exposure control, adjustment of the mA and/or kV according to patient size, use of iterative reconstruction technique). PATIENT PREPARATION: Per protocol COMPARISON: CT abdomen and pelvis 07/31/2022 FINDINGS: Lung bases: Unremarkable Liver: Normal size. No obvious mass. Gallbladder: Unremarkable Spleen: Normal size. Pancreas: Normal size. No surrounding inflammation. Adrenals: Unremarkable Kidneys: No hydronephrosis or stone. Bilateral simple cysts, including at the renal pelvises, are unchanged. Bladder: There is a calcification measuring 6 mm near the junction of the prostate and urinary bladder. Reproductive Organs: Prostatomegaly containing calcifications. Bowel: No obstruction or inflammation. Colonic diverticulosis. Normal appendix. Lymph nodes: No suspicious lymph node enlargement. Vasculature: Mild diffuse atherosclerotic calcifications are noted. Bones: Degenerative changes of the spine. Abdominal wall: Tiny fat containing umbilical hernia. CT/Abdomen/Pelvis without Cont IMPRESSION: 1. Calcification measuring 6 mm near the junction of the prostate and urinary b ladder, favored to be prostatic in origin, with a urinary bladder stone less likely. 2. No renal stone or hydronephrosis. 3. Colonic diverticulosis. Reading Location: [id number]
== END | disposition home or self-care (01) ==
PROVIDERS: PCP Family Medicine; Referring Provider Urology; Visit Provider Urology
DX: R31.0 Gross hematuria (principal)
CPT/HCPCS: 74176

== ENCOUNTER → 2024-08-03 | Outpatient (CLI) | payer OTHER, SELFPAY | END | disposition home or self-care (01) | LOC: LABSPEC 15:33 | PROVIDERS: PCP Family Medicine; Referring Provider Urology; Visit Provider Urology | DX: N40.1 Benign prostatic hyperplasia with lower urinary tract symptoms (principal) | CPT/HCPCS: 87077; 87086; 87088 ==

== ENCOUNTER 2024-08-05 13:20 | Observation (INO) | payer OTHER, SELFPAY ==
[2024-08-05] VITALS (16 sets, daily range): BP systolic 110–165; BP diastolic 55–92; PULSE 64–101; RESP 11–20; TEMP 36.1–36.8; O2SAT 92–99; BMI 32.5
--- NOTE | 2024-08-05 09:25 | EKG12_ITS ---
Test Reason : preop Blood Pressure : */* mmHG Vent. Rate : 79 BPM Atrial Rate : 79 BPM P-R Int : 144 ms QRS Dur : 88 ms QT Int : 366 ms P-R-T Axes : 72 -28 35 degrees QTcB Int : 419 ms Normal sinus rhythm Normal ECG When compared with ECG of 20-Oct-2019 17:05, No significant change was found Confirmed by ALEKSANDAR CALDERON, LOLA ([id number]), videotape editor TRUMAN AWAD ([id number]) on 08/13/2024 1:26:42 PM Referred By: Wesley Hall Confirmed By: LOLA HUERTAS MD
[2024-08-05 10:11] LABS: Hematocrit 39.5 % (40-54); Hemoglobin 13.2 g/dL (13.0-16.5); Mean Corp Hgb Conc 33.4 g/dL (32-36); Mean Corpuscular Hgb 30.9 pg (27.0-32.0); Mean Corpuscular Volume 92.5 fL (80-94); Mean Platelet Vol. 9.6 fl (6.2-12.0); Platelet Count 275 K/mm3 (150-450); RBC Distribution Width CV 12.4 % (11.6-14.6); RBC Distribution Width SD 42.3 fl (35.1-43.9); Red Blood Count 4.27 M/mm3 (4.6-6.2); White Blood Count 14.5 K/mm3 (4.4-11.0)
[2024-08-05] MEDS: Lactated Ringers 1,000 ML 15 ML IV (10:20)
--- NOTE | 2024-08-05 10:43 | PCM.PRE.AN2 ---
ASA Classification* ASA Classification ASA Classification: 2 (HTN, T2DM, HLD, ALEXANDER) Assessment & Plan Anesthesia* Anesthesia Assessment Anesthesia Assessment: Discussed sedation and/or anesthesia options, risks, benefits, and alternatives with patient/parents/legal guardian/POA. Questions invited. The patient/parents/legal guardian/POA seems to understand and agrees to proceed with anesthesia plan. Reviewed the physical assessment, medical history, allergy history and patient home medications list prior to surgery/procedure/anesthetic and documented any changes. Performed airway and anesthesia risk assessments. Anesthesia Type Anesthesia Type: General History Source History Obtained from:: Patient and Chart Anesthesia Focused Assessment* Temperature: 98.2 F Pulse Rate: 80 Blood Pressure: 123/55 Respiratory Rate: 20 Pulse Ox: 98 Oxygen Delivery Method: Room Air Airway Assessment Mouth opens: >3 cm Mallampati Score: II Teeth Condition: Intact Neck Range of motion (ROM): Full ROM Labs Anesthesia Preop lab: CBC WBC 14.5 K/mm3 (4.4-11.0) H 08/05/24 10:00 08/05/24 RBC 4.27 M/mm3 (4.6-6.2) L 08/05/24 10:00 08/05/24 Hgb 13.2 g/dL (13.0-16.5) 08/05/24 10:00 08/05/24 Hct 39.5 % (40-54) L 08/05/24 10:00 08/05/24 Plt Count 275 K/mm3 (150-450) 08/05/24 10:00 08/05/24 CHEMISTRY Potassium 4.6 mmol/L (3.3-5.1) 07/01/24 05:59 07/01/24 Sodium 139 mmol/L (133-145) 07/01/24 05:59 07/01/24 Magnesium 2.0 mg/dL (1.6-2.6) 12/09/19 08:45 12/09/19 BUN 18 mg/dL (4-19) 07/01/24 05:59 07/01/24 Creatinine 0.78 mg/dL (0.70-1.20) 07/01/24 05:59 07/01/24 Glucose 108 mg/dL (70-99) H 07/01/24 05:59 07/01/24 POC Glucose 142 mg/dL (70-110) H 07/20/20 07:03 07/20/20 TSH 1.240 uIU/mL (0.300-4.200) 07/01/24 05:59 07/01/24 COAG Pre-Assessment Diagnosis/Proposed Procedure Planned Operative Procedure(s): TURP AND LITHOLAPAXY Anesthesia History Anesthesia History - [facility]: Anesthesia History - [facility] Hx Hospitalization No 07/30/24 10:29 Any Problems With Anesthesia No 07/30/24 10:29 Cholinesterase deficiency No 07/30/24 10:29 You/Your Family Experience No 07/30/24 10:29 fever (hyperthermia) with Relationship Recent Exposure to Contagious No 08/05/24 10:13 Disease Does patient have nerve No 07/30/24 10:29 stimulator Patient instructed to have device shut off --Does patient have Pacemaker No 08/05/24 10:13 or ICD? When Was Last Pacemaker Check QUESTION #4 FULL TEXT: You/Your Family Experience fever (hyperthermia) with Anesthesia Last Oral Intake Last Oral intake: Last Oral Intake NPO since 19:40 08/05/24 10:13 Meds taken in AM with sips of water? Meds patient instructed to take am of surgery PONV PONV - [facility] institution: PONV - [facility] Female No 07/30/24 10:29 HX of Motion Sickness Yes 07/30/24 10:29 HX of N/V After Surgery No 07/30/24 10:29 Non-Smoker Yes 07/30/24 10:29 Duration of Surgery greater Yes 07/30/24 10:29 than 60 minutes Number of Risk Factors 3 07/30/24 10:29 PONV Score Moderate Risk 07/30/24 10:29 Height & Weight Height & Weight: Anesthesia: Height & Weight Height 5 ft 9 in 08/05/24 10:13 Weight: 100 kg 08/05/24 10:13 Body Mass Index (BMI) 32.5 08/05/24 10:13 Respiratory Assessment Respiratory Assessment - [facility]: Respiratory Tract Infection Hx - [facility] Hx Respiratory Tract Infection No 07/30/24 10:29 STOP Sleep Apnea STOP Sleep Apnea - [facility]: STOP Sleep Apnea - [facility] Hx Hypertension Yes: CONTROLLED WITH MED 07/30/24 10:29 Hx Sleep Apnea Yes 07/30/24 10:29 CPAP Yes 07/30/24 10:29 BIPAP No 07/30/24 10:29 Do you snore loudly (louder than talking or can be heard Do you often feel tired/ fatigued/ sleepy during daytime? Has anyone observed you stop breathing during sleep? STOP Results Positive 07/30/24 10:29 QUESTION #5 FULL TEXT : Do you snore loudly (louder than talking or can be heard through closed doors)? Tobacco Use History Tobacco Use History - [facility]: Tobacco Use History - [facility] Tobacco Use Smoking Status Never smoker 07/30/24 10:29 Hx Tobacco Use No 07/30/24 10:29 Years Smoking Packs Smoked per Day Smoking Cessation Date was within the last 15 years Hx Smoking Cessation Date Hx Smoking Cessation Counseling Hematologic Medial History Hematologic Hx - [facility]: Hematologic Medical Hx - vocational coordinator Hx of Blood Transfusion No 07/30/24 10:29 Hx of Transfusion in last 3 No 07/30/24 10:29 Months Date of Last Transfusion (if within last 3 months) Ever experience any problems No 07/30/24 10:29 with transfusion(s)? Specify any problems Hx of Preganancy in last 3 N/A 07/30/24 10:29 Months Nurse Filling Out Transfusion DSCHRIBER 07/30/24 10:29 & Questions: Date: 07/30/24 07/30/24 10:29 Time: 10:30 07/30/24 10:29 Patient unable to answer at this time (ie. confused, unrespo /Reproduction History /Reproductive History - [facility]: /Reproductive Hx- [facility] Hx Now No 07/30/24 10:29 Gestational Age (in weeks): EDC: Hx Hx Para Hx Section SAB No 07/30/24 10:29 Active Medications Active Medications: Current Medications Generic Name Dose Route Start Last Admin Trade Name Freq PRN Reason Stop Dose Admin Cefazolin Sodium 2 gm/ Sodium 110 mls @ 200 mls/hr 08/05/24 11:35 Chloride IV 08/05/24 12:07 INTRAOP ONE Lactated Ringer's 1,000 mls @ 15 mls/hr 08/05/24 09:45 06/25/25 10:20 IV 15 mls/hr .Q48H JOSE MANUEL Administration PFSH Medical History (Updated 07/30/24 @ 10:35 by Edith Mccullough) Wears glasses Shortness of breath on exertion History of pain when walking Diabetes Arthritis Prostate disease Bladder disease High cholesterol Dietary restriction Non-smoker CPAP (continuous positive airway pressure) dependence History of stress test Hypertension Cyst History of bladder stone Home Medications ?Medication ?Instructions ?Recorded ?Last Taken ?Type atorvastatin 20 mg tablet 20 mg PO QHS cholesterol 11/24/12 08/04/24 History cholecalciferol (vitamin D3) 25 1,000 unit PO DAILY supplement 12/02/19 07/15/24 History mcg (1,000 unit) tablet lactase 3,000 unit tablet 3,000 unit PO .PRN lactose 12/02/19 Unknown History intolerant lisinopril 5 mg tablet 5 mg PO DAILY bp 12/02/19 08/04/24 History metformin 1,000 mg tablet 1,000 mg PO BID 07/30/24 08/04/24 History semaglutide 0.25 mg or 0.5 mg (2 0.5 mg subcut SA 07/30/24 07/25/24 History mg/3 mL) subcutaneous pen injector (Ozempic) ciprofloxacin HCl 500 mg tablet 500 mg PO BID 08/05/24 08/04/24 History (Cipro) Allergy/AdvReac Type Severity Reaction Status Date / Time No Known Allergies Allergy Verified 08/05/24 10:10 Surgical History (Updated 07/30/24 @ 10:35 by Edith Mccullough) Hx of transurethral resection of prostate Hx of colonoscopy Hx of foot surgery History of tonsillectomy and adenoidectomy Hx of fasciotomy History of total knee arthroplasty Social History Smoking Status: Never smoker Review of Systems (Anesthesia) ROS Narrative System reviewed and no additional complaints, except as documented. Physical Exam Const alert, oriented x3 and average body habitus Resp normal respiratory effort, normal air movement and clear to auscultation bilaterally Cardio regular rate, regular rhythm, no murmurs and diaphoretic
--- NOTE | 2024-08-05 11:30 | PROS_PTH ---
PATIENT: MELISA ACHARYA LOC: [facility] U#:[id number] AGE/SX: 64/M ROOM: PR315 RE08/05/[address]: Dr. Wesley Hall MD : 1960 BED: 1 DIS: 08/06/2024 SPEC #: [id number] RECD: 08/05/24 13:42 STATUS: HAYES BRANDT #: [id number] ROSHAN: 08/05/24 11:[address]: Wesley Hall DEPT: SURGICAL PATHOLOGY RECD BY: Greg Vega ENTERED: 08/05/24 13:59 SP TYPE: TURP OTHR DR: Dr. Zackery Huber MD Tissues: A - Prostate, NOS Procedures: Surgery Specimen Level IV HEADER OPERATION: Cysto, transurethral resection , prostate, litholapaxy PRE-OP DIAGNOSIS: Benign prostatic hyperplasia with lower urinary tract symptoms TISSUE SUBMITTED: A- Prostate chips MICROSCOPIC DIAGNOSIS A. Prostate, transurethral resection: - Benign prostate tissue with acute prostatitis. MICROSCOPIC DESCRIPTION Slides are reviewed. GROSS DESCRIPTION A. Received in formalin labeled with the patient's name and date of . Designated as prostate chips is a 16.8 g, 6.8 x 6.0 x 1.0 cm aggregate of mauro-pink irregular, focally cauterized and rubbery tissue fragments. Entirely submitted in 7 cassettes. SD 08/05/2024 CPT:[id number]
[2024-08-05 12:10] LABS: Bedside Glucose 106 mg/dL (74-106)
--- NOTE | 2024-08-05 14:21 | PCM.POST.ANE ---
Anesthesia: Postop Eval I Current Vital Signs Temperature: 97 F Pulse Rate: 93 Blood Pressure: 146/75 Respiratory Rate: 18 Pulse Ox: 95 Oxygen Delivery Method: Room Air Assessment Airway patent: Yes Spontaneous unlabored respirations: Yes Mental status: Awake nausea: No Vomiting: No Anesthesia Complication: No Fluid Hydration Crystalloid volume administer (ml): 1,000 Total IV fluid infused: 1,000 Progress Note Anesthesia document: Postop Eval 1 completed: Yes
--- NOTE | 2024-08-05 14:51 | POSTOPAN2_ITS ---
Anesthesia Postop Eval I Sum Postop Eval Completion status Anesthesia document: Postop Eval 1 completed: Yes Anesthesia Postop Eval I Summary Anesthesia Postop Eval I Summary: Anesthesia Postop Eval I: Assessment Summary Airway patent Yes 08/05/24 14:22 [email or web address] Spontaneous unlabored Yes 08/05/24 14:22 [email or web address] [email or web address] respirations Mental status Awake 08/05/24 14:22 [email or web address] [email or web address] nausea No 08/05/24 14:22 [email or web address] [email or web address] Vomiting No 08/05/24 14:22 [email or web address] Anesthesia Postop Eval I: Fluid Summary Crystalloid volume administer 1,000 08/05/24 14:22 [email or web address] (ml) Colloids volume administered ( ml) Blood Product volume administered (ml) Total IV fluid infused 1,000 08/05/24 14:22 [email or web address] Anesthesia Postop Eval I: Summary Notes Anesthesia Complication No 08/05/24 14:22 [email or web address] Anesthesia Complication Comment: Post-operative progress note Anesthesia: Postop Eval II Evaluation Mental status: Awake Pain Level: 0 nausea: No Vomiting: No Complications Anesthesia Complication: No
--- NOTE | 2024-08-05 14:51 | PCM.POSTANE2 ---
Anesthesia Postop Eval I Sum Postop Eval Completion status Anesthesia document: Postop Eval 1 completed: Yes Anesthesia Postop Eval I Summary Anesthesia Postop Eval I Summary: Anesthesia Postop Eval I: Assessment Summary Airway patent Yes 08/05/24 14:22 STRAIGHT [email or web address] Spontaneous unlabored Yes 08/05/24 14:22 STRAIGHT [email or web address].[email or web address] respirations Mental status Awake 08/05/24 14:22 STRAIGHT [email or web address] nausea No 08/05/24 14:22 STRAIGHT TRUCK DRIVER.[email or web address] Vomiting No 08/05/24 14:22 STRAIGHT [email or web address].ACAR Anesthesia Postop Eval I: Fluid Summary Crystalloid volume administer 1,000 08/05/24 14:22 STRAIGHT [email or web address].[email or web address] (ml) Colloids volume administered ( ml) Blood Product volume administered (ml) Total IV fluid infused 1,000 08/05/24 14:22 STRAIGHT [email or web address].ACAR Anesthesia Postop Eval I: Summary Notes Anesthesia Complication No 08/05/24 14:22 STRAIGHT [email or web address].ACAR Anesthesia Complication Comment: Post-operative progress note Anesthesia: Postop Eval II Evaluation Mental status: Awake Pain Level: 0 nausea: No Vomiting: No Complications Anesthesia Complication: No
[2024-08-05] MEDS: 0.9% Normal Saline (1000mL) 1,000 ML 125 ML IV (16:53)
[2024-08-05] MEDS: metFORMIN HCl 1,000 MG Tablet 1000 MG PO (17:03)
[2024-08-05 17:24] LABS: Bedside Glucose 173 mg/dL (74-106)
--- OUTSIDE RECORDS SUMMARY | 2024-08-05 18:08 | XMS RPT_ITS | CCD ---
Author Organization [facility] Care Team Providers Care Vice President Research Name Role Phone Cecile CALDERON, Dr. Vizcarra Primary Care Provider Cecile CALDERON, Dr. Vizcarra Attending Provider Cecile CALDERON, Dr. Vizcarra Referring Provider Rafael CALDERON, Dr. Wesley Lindsay Attending Provider Rafael CALDERON, Dr. Wesley Lindsay Referring Provider Zackery Huber Primary Care Unavailable Zackery Huber Referring Unavailable Zackery Huber Attending Unavailable Wesley Hall Referring Unavailable Rafael, Wesley Lindsay Attending Unavailable Zackery Huber Primary Care Unavailable Zackery Huber Attending Unavailable Zackery Huber Primary Care Unavailable Zackery Huber Referring Unavailable Zackery Huber Primary Care Unavailable SalixAdeline Referring Unavailable Salix, Adeline Attending Unavailable Weslye Hall Referring Unavailable Rafael, Wesley Lindsay Attending Unavailable Zackery Huber Primary Care Unavailable RafaelWesley Attending Unavailable Zackeyr Huber Primary Care Unavailable Medications Current Medications Medication Drug Class(es) Dates Sig (Normalized) Sig (Original) acetaminophen 325 mg / oxyCODONE hydrochloride 5 mg oral tablet (3 sources) Opioid Agonist Start: 07-31-2022 take 1 tablet by mouth every six hours as needed for pain Oxycodone-Acetami nophen 5-325 mg tablet Active 1 {tbl} PO EVERY 6 HOURS NEEDED as needed for Pain 12 3 July 31, 2022 Start: 07-31-2022 take 1 tablet by talia th every six hours as needed Oxycodone-Acetaminophen Active 1 TABLET PO EVERY 6 HOURS NEEDED 12 July 31, 2022 atorvastatin 20 mg oral tablet (4 sources) HMG-CoA Reductase Inhibitor Start: 11-24-2012 take 1 tablet by mouth once daily Atorvastatin 20 MG tablet Active 20 mg PO DAILY November 24, 2012 12:00am cholecalciferol 0.025 mg oral tablet (4 sources) Vitamin D Start: 12-02-2019 take 1 tablet by mouth once daily Cholecalciferol (Vitamin D3) 1,000 UNIT tablet Active 1000 U PO DAILY December 02, 2019 12:00am lactase 3000 unt chewable tablet (4 sources) Start: 12-02-2019 Lactase 3,000 UNIT tablet Active 3000 U PO .PRN December 02, 2019 12:00am Start: 12-02-2019 Lactase Active 3000 UNIT PO .PRN December 02, 2019 12:00am lisinopril 5 mg oral tablet (4 sources) Angiotensin Converting Enzyme Inhibitor Start: 12-02-2019 take 1 tablet by mouth once daily Lisinopril 5 MG tablet Active 5 mg PO DAILY December 02, 2019 12:00am mecobalamin 1 mg chewable tablet (3 sources) Start: 07-31-2022 Mecobalamin (Vitamin B12) (B12 Active) 1,000 mcg Tablet,Chewable Active ug PO July 31, 2022 12:00am Start: 07-31-2022 Mecobalamin (V itamin B12) (B12 Active) 1,000 mcg Tablet,Chewable Active MCG PO July 31, 2022 12:00am metFORMIN hydrochloride 500 mg oral tablet (4 sources) Biguanide Start: 11-24-2012 take 2 tablets by mouth twice daily at mealtime Metformin 500 MG tablet Active 1000 mg PO TWICE DAILY WITH MEALS November 24, 2012 12:00am Start: 11-24-2012 take 1000 mg by mout h twice daily at mealtime Metformin Active 1000 MG PO TWICE DAILY WITH MEALS November 24, 2012 12:00am naproxen 500 mg oral tablet (3 sources) Nonsteroidal Anti-inflammatory Drug Start: 07-31-2022 take 1 tablet by mouth twice daily Naproxen 500 mg tablet Active 500 mg PO TWICE A DAY July 31, 2022 12:00am ondansetron 4 mg disintegrating oral tablet (3 sources) Serotonin-3 Receptor Antagonist Start: 07-31-2022 take 1 tablet by mouth every eight hours as needed for nausea Ondansetron 4 mg tablet,disintegr ating Active 4 mg PO EVERY 8 HOURS NEEDED as needed for Nausea July 31, 2022 12:00am tamsulosin hydrochloride 0.4 mg oral capsule (7 sources) alpha-Adrenergic Jamila Start: 07-31-2022 take 1 capsule by mouth once daily Tamsulosin (Flomax) 0.4 mg capsule Active 0.4 mg PO DAILY July 31, 2022 12:00am Start: 12-02-2019 End: 07-20-2020 take 1 capsule by mouth at bedtime Tamsulosin 0.4 MG capsule Discontinued 0.4 mg PO AT BEDTIME December 02, 2019 12:00am July 20, 2020 9:22am Completed/Discontinued Medications Medication Drug Class(es) Dates Sig (Normalized) Sig (Original) acetaminophen 325 mg / HYDROcodone bitartrate 5 mg oral tablet (4 sources) Opioid Agonist Start: 01-16-2020 End: 01-18-2020 Hydrocodone-Acetami nophen 1 TABLET tablet Discontinued 1 {tbl} PO EVERY 4 HOURS NEEDED as needed for Pain 11 12January 16, 2020 January 17, 2020 1:00am January 18, 2020 1:03am Start: 01-16-2020 End: 01-18-2020 take 1 tablet by mouth every four hours as needed Hydrocodone-Acetaminophen Discontinued 1 TABLET PO EVERY 4 HOURS NEEDED 11 12January 16, 2020 January 18, 2020 1:03am ciprofloxacin 500 mg oral tablet (5 sources) Quinolone Antimicrobial Start: 07-20-2020 End: 07-20-2020 take 1 tablet by mouth twice daily Ciprofloxacin Hcl (Cipro) 500 mg tablet Discontinued 500 mg PO TWICE A DAY July 20, 2020 12:00am July 20, 2020 9:21am finasteride 5 mg oral tablet (4 sources) 5-alpha Reductase Inhibitor Start: 12-02-2019 End: 07-20-2020 take 1 tablet by mouth at bedtime Finasteride 5 MG tablet Discontinued 5 mg PO AT BEDTIME December 02, 2019 12:00am July 20, 2020 9:21am Problems Active Problems Problem Classification Problem Date Documented Da te Episodic/Chronic Abdominal pain (3 sources) Right flank pain; Translations: [Unspecified abdominal pain] 07-31-2022 Episodic Calculus of urinary tract (8 sources) Urinary bladder stone; Translations: [Calculus in bladder] 07-31-2022 Episodic Diabetes mellitus with complications (1 source) Type 2 diabetes mellitus with hyperglycemia; Translations: [Type 2 diabetes mellitus with hyperglycemia] Onset: 07-06-2024 Chronic Genitourinary symptoms and ill-defined conditions (1 source) Gross hematuria; Translations: [Gross hematuria] Onset: 07-21-2024 Episodic Hyperplasia of prostate (5 sources) Benign prostatic hyperplasia; Translations: [Benign prostatic hyperplasia without lower urinary tract symptoms] Onset: 08-03-2024 07-20-2020 Chronic Past or Other Problems Problem Classification Problem Date Documented Da te Episodic/Chronic Other circulatory disease (1 source) Other specified symptoms and signs involving the circulatory and respiratory systems; Translations: [Other specified symptoms and signs involving the circulatory and respiratory systems] Onset: 08-29-2023 Episodic Other screening for suspected conditions (not mental disorders or infectious disease) (1 source) Encounter for screening for malignant neoplasm of prostate; Translations: [Encounter for screening for malignant neoplasm of prostate] Onset: 02-16-2024 Episodic Results Test Name Value Interpretation Reference Range Facility Abdomen/Pelvis without Conto n 07-16-2024 Abdomen/Pelvis without Cont [facility] [address] [place] [address] [id number] Abdomen/Pelvis without Cont MR#: [id number] Acct: [id number] Name: MELISA ACHARYA Rep #: [id number] : 1960 M 64 From: Shay Ahumada MD PCP: Dr. Zackery Huber MD Status: REG CLI Study: Abdomen/Pelvis without Cont Date of Exam: 07/05 Exam# [id number] Ordering Dr: Wesley Hall MD PROCEDURE: ABDOMEN/PELVIS WITHOUT CONT 07/16/2024 REASON FOR EXAM: GROSS HEMATURIA TECHNIQUE: Abdomen and pelvis CT without intravenous contrast. Noncontrast technique limits evaluation of the abdominal and pelvic viscera. Coronal and Sagittal reconstruction series were provided. One or more dose reduction techniques were used (e.g., Automated exposure control, adjustment of the mA and/or kV according to patient size, use of iterative reconstruction technique). PATIENT PREPARATION: Per protocol COMPARISON: CT abdomen and pelvis 07/31/2022 FINDINGS: Lung bases: Unremarkable Liver: Normal size. No obvious mass. Gallbladder: Unremarkable Spleen: Normal size. Pancreas: Normal size. No surrounding inflammation. Adrenals: Unremarkable Kidneys: No hydronephrosis or stone. Bilateral simple cysts, including at the renal pelvises, are unchanged. Bladder: There is a calcification measuring 6 mm near the junction of the prostate and urinary bladder. Reproductive Organs: Prostatomegaly containing calcifications. Bowel: No obstruction or inflammation. Colonic diverticulosis. Normal appendix. Lymph nodes: No suspicious lymph node enlargement. Vasculature: Mild diffuse atherosclerotic calcifications are noted. Bones: Degenerative changes of the spine. Abdominal wall: Tiny fat containing umbilical hernia. CT/Abdomen/Pelvis without Cont IMPRESSION: 1. Calcification measuring 6 mm near the junction of the prostate and urinary bladder, favored to be prostatic in origin, with a urinary bladder stone less likely. 2. No renal stone or hydronephrosis. 3. Colonic diverticulosis. Reading Location: [facility] CC: Dr. Zackery Huber MD; Dr. Wesley Hall MD Director College: Signed Normal [facility] Anion gap in Serum or Plasma Ordered By: Zackery Huber on 07-01-2024 Anion gap [Moles/Vol] 10 mmol/L 5-15 [facility] BUN/creatinine ratioOrdered By: Zackery Huber on 07-01-2024 Urea nitrogen/Creatinine [Mass ratio] 23.5 mg/mg High 10-20 [facility] Bilirubin, totalOrdered By: Zackery Huber on 07-01-2024 Bilirubin [Mass/Vol] 0.73 mg/dL 0.00-1.30 [facility] Calculated very low density lipoprotein (VLDL) cholesterol measurementOrdered By: Zackery Huber on 07-01-2024 Calculated very low density lipoprotein (VLDL) cholesterol measurement 12 mg/dL 5-40 [facility] Carbon dioxide, total [Moles /volume] in Central venous bloodOrdered By: Zackery Huber on 07-01-2024 CO2 [Moles/Vol] 23.8 mmol/L 21.0-32.0 [facility] Chloride assayOrdered By: Mena Huber on 07-01-2024 Chloride [Moles/Vol] 105 mmol/L 98-108 [facility] Comprehensive Metabolic Prof ilon 07-01-2024 Albumin [Mass/Vol] 4.2 g/dL Normal 3.4-4.8 [facility] Comment on above: Order Comment: UNABL E TO DO PSA, TO EARLY Order Date: 01/07/24 Order Info: [id number]- - CMP Order Info: - LIPID Order Info: [id number] - TSH Performed By: #### L [id number], L500.4100, L500.4050, L501.9985 #### [facility] [address] [place], [address] Albumin/Globulin [Mass ratio] 1.5 {ratio} Normal 0.9-2.4 [facility] Comment on above: Order Comment: UNABL E TO DO PSA, TO EARLY Order Date: 01/07/24 Order Info: 785-02 - CMP Order Info: - LIPID Order Info: [id number] - TSH Performed By: #### L [id number], L500.4100, L500.4050, [id number] #### [facility] [address] [place], [address] ALK PHOS 88 U/L Normal 40-129 [facility] Comment on above: Order Comment: UNABL E TO DO PSA, TO EARLY Order Date: 01/07/24 Order Info: 785-02 - CMP Order Info: - LIPID Order Info: [id number] - TSH Performed By: #### L [id number], L500.4100, L500.4050, [id number] #### [facility] [address] [place], [address] ALT [Catalytic activity/Vol] 23 U/L Normal <=46 [facility] Comment on above: Order Comment: UNABL E TO DO PSA, TO EARLY Order Date: 01/07/24 Order Info: 785-02 - CMP Order Info: - LIPID Order Info: [id number] - TSH Result Comment: Hemo lysis present, Results??could be affected. ?? Performed By: #### L [id number], L500.4100, L500.4050, L501.9985 #### [facility] [address] [place], [address] AST [Catalytic activity/Vol] 28 U/L Normal <=37 [facility] Comment on above: Order Comment: UNABL E TO DO PSA, TO EARLY Order Date: 01/07/24 Order Info: 785-1 - CMP Order Info: - LIPID Order Info: [id number] - TSH Result Comment: Hemo lysis present, Results??could be affected. ?? Performed By: #### L [id number], L500.4100, L500.4050, L501.9985 #### [facility] [address] [place], [address] Bilirubin [Mass/Vol] 0.73 mg/dL Normal 0.00-1.30 [facility] Comment on above: Order Comment: UNABL E TO DO PSA, TO EARLY Order Date: 01/07/24 Order Info: 785-02 - CMP Order Info: - LIPID Order Info: 3 - TSH Performed By: #### L [id number], L500.4100, L500.4050, L501.9985 #### [facility] [address] [place], [address] BUN/CRE 23.5 RATIO High 10-20 [facility] Comment on above: Order Comment: UNABL E TO DO PSA, TO EARLY Order Date: 01/07/24 Order Info: 785-02 - CMP Order Info: - LIPID Order Info: 3 - TSH Performed By: #### L [id number], L500.4100, L500.4050, L501.9985 #### [facility] [address] [place], [address] Calcium [Mass/Vol] 9.5 mg/dL Normal 7.6-11.0 [facility] Comment on above: Order Comment: UNABL E TO DO PSA, TO EARLY Order Date: 01/07/24 Order Info: 785-02 - CMP Order Info: - LIPID Order Info: [id number] - TSH Performed By: #### L [id number], L500.4100, L500.4050, L501.9985 #### [facility] [address] [place], [address] Chloride [Moles/Vol] 105 mmol/L Normal 98-108 [facility] Comment on above: Order Comment: UNABL E TO DO PSA, TO EARLY Order Date: 01/07/24 Order Info: 785-02 - CMP Order Info: - LIPID Order Info: 3015-04 - TSH Performed By: #### L [id number], L500.4100, L500.4050, L501.9985 #### [facility] [address] [place], [address] CO2 [Moles/Vol] 23.8 mmol/L Normal 21.0-32.0 [facility] Comment on above: Order Comment: UNABL E TO DO PSA, TO EARLY Order Date: 01/07/24 Order Info: 785-02 - CMP Order Info: - LIPID Order Info: [id number] - TSH Performed By: #### L [id number], L500.4100, L500.4050, L501.9985 #### [facility] [address] [place], [address] Creatinine [Mass/Vol] 0.78 mg/dL Normal 0.70-1.20 [facility] Comment on above: Order Comment: UNABL E TO DO PSA, TO EARLY Order Date: 01/07/24 Order Info: 785-02 - CMP Order Info: - LIPID Order Info: 3015-04 - TSH Performed By: #### L [id number], L500.4100, L500.4050, L501.9985 #### [facility] [address] [place], [address] GAP 10 Normal 5-15 [facility] Comment on above: Order Comment: UNABL E TO DO PSA, TO EARLY Order Date: 01/07/24 Order Info: 785-02 - CMP Order Info: [id number] - LIPID Order Info: 3015-04 - TSH Performed By: #### L [id number], L500.4100, L500.4050, L501.9985 #### [facility] [address] [place], [address] GFR/1.73 sq M.predicted among non-blacks MDRD (S/P/Bld) [Vol rate/Area] 101 mL/min/{1.73_m2} Normal >60 [facility] Comment on above: Order Comment: UNABL E TO DO PSA, TO EARLY Order Date: 01/07/24 Order Info: 785-02 - CMP Order Info: - LIPID Order Info: 3015-04 - TSH Result Comment: mL/m in/1.73m2 CKD-EPI Creatinine Equation (2020) Performed By: #### L [id number], L500.4100, L500.4050, L501.9985 #### [facility] [address] [place], [address] Globulin (S) [Mass/Vol] 2.8 g/dL Normal 2.2-4.2 [facility] Comment on above: Order Comment: UNABL E TO DO PSA, TO EARLY Order Date: 01/07/24 Order Info: 785-02 - CMP Order Info: [id number] - LIPID Order Info: 3015-04 - TSH Performed By: #### L [id number], L500.4100, L500.4050, L501.9985 #### [facility] [address] [place], [place], [address] Glucose [Mass/Vol] 108 mg/dL High 70-99 [facility] Comment on above: Order Comment: UNABL E TO DO PSA, TO EARLY Order Date: 01/07/24 Order Info: 785-02 - CMP Order Info: - LIPID Order Info: 3015-04 - TSH Performed By: #### L [id number], L500.4100, L500.4050, L501.9985 #### [facility] [address] [place], [address] Potassium [Moles/Vol] 4.6 mmol/L Normal 3.3-5.1 [facility] Comment on above: Order Comment: UNABL E TO DO PSA, TO EARLY Order Date: 01/07/24 Order Info: 785-02 - CMP Order Info: - LIPID Order Info: 3015-04 - TSH Result Comment: Hemo lysis present, Results??could be affected. ?? Performed By: #### L [id number], L500.4100, L500.4050, L501.9985 #### [facility] [address] [place], [address] Sodium [Moles/Vol] 139 mmol/L Normal 133-145 [facility] Comment on above: Order Comment: UNABL E TO DO PSA, TO EARLY Order Date: 01/07/24 Order Info: 785-02 - CMP Order Info: - LIPID Order Info: 3015-04 - TSH Performed By: #### L [id number], L500.4100, L500.4050, L501.9985 #### [facility] [address] [place], [address] T PROT 6.9 g/dL Normal 5.9-8.4 [facility] Comment on above: Order Comment: UNABL E TO DO PSA, TO EARLY Order Date: 01/07/24 Order Info: 785-02 - CMP Order Info: - LIPID Order Info: [id number] - TSH Performed By: #### L [id number], L500.4100, L500.4050, L501.9985 #### [facility] [address] [place], [place], [address] Urea nitrogen [Mass/Vol] 18 mg/dL Normal 4-19 [facility] Comment on above: Order Comment: UNABL E TO DO PSA, TO EARLY Order Date: 01/07/24 Order Info: [id number] - CMP Order Info: [id number] - LIPID Order Info: [id number] - TSH Performed By: #### L [id number], L500.4100, L500.4050, L501.9956 #### [facility] [address] [place], [place], [address] Glomerular filtration rate ( GFR) estimation/1.73 sq m using serum, plasma, or whole bOrdered By: Zackery Huber on 07-01-2024 GFR/1.73 sq M.predicted among non-blacks MDRD (S/P/Bld) [Vol rate/Area] 101 mL/min/{1.73_m2} >60 [facility] Comment on above: mL/min/1.73m2 CKD-EP I Creatinine Equation (2020) Hemoglobin A1con 07-01-2024 HbA1c (Bld) [Mass fraction] 6.4 % High <=5.6 [facility] Comment on above: Order Comment: Order Date: 01/07/24 Order Info: [id number] - A1C Result Comment: Norm al < 5.7 % Prediabetic 5.7 - 6.4 % Diabetic >or= 6.5 % Please note range changes. Performed By: #### L [id number], L500.4100, L500.4050, L501.9985 #### [facility] [address] [place], [address] Hemoglobin A1c percentageOrd ered By: Zackery Huber on 07-01-2024 HbA1c (Bld) [Mass fraction] 6.4 % High <5.7 [facility] Comment on above: Normal < 5.7 % Predi abetic 5.7 - 6.4 % Diabetic >or= 6.5 % Please note range changes. L509.3001on 07-01-2024 Testosterone [Mass/Vol] 440.00 ng/dL Normal 300-720 [facility] Comment on above: Order Comment: UNABL E TO DO PSA, TO EARLY Order Date: 01/07/24 Order Info: 785-02 - CMP Order Info: - LIPID Order Info: [id number] - TSH Performed By: #### L 509.3001 #### [facility] [address] [place], [place], [address] LDL calc ser/plasOrdered By: Zackery Huber on 07-01-2024 Cholesterol in LDL [Mass/Vol] 57 mg/dL [facility] Comment on above: Mqvemscknc=710-929 m g/dL & Higher Pjao=578 mg/dL or greater Laboratory - Chemistry and C hemistry - challengeOrdered By: Zackery Huber on 07-01-2024 AST [Catalytic activity/Vol] 28 U/L <38 [facility] Comment on above: Hemolysis present, R esults could be affected. Testosterone [Mass/Vol] 440.00 ng/dL 300-720 [facility] Lipid Profileon 07-01-2024 CHOL:HDL 2.25 Normal [facility] Comment on above: Order Comment: UNABL E TO DO PSA, TO EARLY Order Date: 01/07/24 Order Info: 785-02 - CMP Order Info: - LIPID Order Info: [id number] - TSH Performed By: #### L [id number], L500.4100, L500.4050, L501.9985 #### [facility] [address] [place], [place], [id number] Cholesterol [Mass/Vol] 123 mg/dL Normal <=200 [facility] Comment on above: Order Comment: UNABL E TO DO PSA, TO EARLY Order Date: 01/07/24 Order Info: 07 - CMP Order Info: - LIPID Order Info: [id number] - TSH Result Comment: Chol esterol level, Desirable <200 mg/dL Borderline high cholesterol 200-239 mg/dL High cholesterol >=240 mg/dL Recommendations of the NCEP Adult Treatment Panel for the following risk-cutoff thresholds for the [place] population. Performed By: #### L [id number], L500.4100, L500.4050, L501.9985 #### [facility] [address] [place], [address] Cholesterol in HDL [Mass/Vol] 55 mg/dL Normal [facility] Comment on above: Order Comment: UNABL E TO DO PSA, TO EARLY Order Date: 01/07/24 Order Info: 785-02 - CMP Order Info: - LIPID Order Info: 3015-04 - TSH Result Comment: [place]ha onal Cholesterol Education Program (NCEP) guidelines: <40 mg/dL: Low HDL-cholesterol (major risk factor for CHD) >= 60 mg/dL: High HDL-cholesterol (negative risk factor for CHD) HDL-cholesterol is affected by a number of factors, e.g. smoking, exercise, hormones, sex and age. Performed By: #### L [id number], L500.4100, L500.4050, L501.9985 #### [facility] [address] [place], [address] Cholesterol in LDL [Mass/Vol] 57 mg/dL Normal [facility] Comment on above: Order Comment: UNABL E TO DO PSA, TO EARLY Order Date: 01/07/24 Order Info: 785-02 - CMP Order Info: - LIPID Order Info: [id number] - TSH Result Comment: Bord nwkhgu=899-457 mg/dL Higher Fbme=220 mg/dL or greater Performed By: #### L [id number], L500.4100, L500.4050, L501.9985 #### [facility] [address] [place], [address] Cholesterol in VLDL [Mass/Vol] 12 mg/dL Normal 5-40 [facility] Comment on above: Order Comment: UNABL E TO DO PSA, TO EARLY Order Date: 01/07/24 Order Info: 785-02 - CMP Order Info: - LIPID Order Info: [id number] - TSH Performed By: #### L [id number], L500.4100, L500.4050, L501.9985 #### [facility] [address] [place], [place], [address] Triglyceride [Mass/Vol] 59 mg/dL Normal [facility] Comment on above: Order Comment: UNABL E TO DO PSA, TO EARLY Order Date: 01/07/24 Order Info: [id number] - CMP Order Info: [id number] - LIPID Order Info: [id number] - TSH Result Comment: The drugs N-Acetylcysteine and Metamizole may falsely depress this assay. Normal range: <150 mg/dL Borderline High: 150-199 mg/dL High: 200-499 mg/dL Very High: >500 mg/dL Performed By: #### L [id number], L500.4100, L500.4050, L501.9985 #### [facility] [address] [place], [place], [address] Potassium measurement (mass/ volume)Ordered By: Zackery Huber on 07-01-2024 Potassium (Unsp spec) [Mass/Vol] 4.6 mmol/L 3.3-5.1 [facility] Comment on above: Hemolysis present, R esults could be affected. Screening total cholesterol/ high density lipoprotein (HDL) cholesterol ratioOrdered By: Zackery Huber on 07-01-2024 Cholesterol.total/Cholest anita in HDL [Mass ratio] 2.25 {ratio} [facility] Serum creatinine measurement (mass/volume)Ordered By: Zackery Huber on 07-01-2024 Creatinine [Mass/Vol] 0.78 mg/dL 0.70-1.20 [facility] Serum globulin measurementOr dered By: Zackery Huber on 07-01-2024 Globulin (S) [Mass/Vol] 2.8 g/dL 2.2-4.2 [facility] Serum glucose measurement (m ass/volume)Ordered By: Zackery Huber on 07-01-2024 Glucose [Mass/Vol] 108 mg/dL High 70-99 [facility] Serum or plasma alanine lobato otransferase (ALT) measurementOrdered By: Zackery Huber on 07-01-2024 ALT [Catalytic activity/Vol] 23 U/L <47 [facility] Comment on above: Hemolysis present, R esults could be affected. Serum or plasma albumin quincy urement (mass/volume)Ordered By: Zackery Huber on 07-01-2024 Albumin [Mass/Vol] 4.2 g/dL 3.4-4.8 [facility] Serum or plasma albumin/glob ulin mass ratioOrdered By: Zackery Huber on 07-01-2024 Albumin/Globulin [Mass ratio] 1.5 {ratio} 0.9-2.4 [facility] Serum or plasma alkaline rosa sphatase measurementOrdered By: Zackery Huber on 07-01-2024 ALP [Catalytic activity/Vol] 88 U/L 40-129 [facility] Serum or plasma calcium quincy urement (mass/volume)Ordered By: Zackery Huber on 07-01-2024 Calcium [Mass/Vol] 9.5 mg/dL 7.6-11.0 [facility] Serum or plasma cholesterol in HDL measurement (mass/volume)Ordered By: Zackery Huber on 07-01-2024 Cholesterol in HDL [Mass/Vol] 55 mg/dL >40 [facility] Comment on above: National Cholesterol Education Program (NCEP) guidelines:<40 mg/dL: Low HDL-cholesterol (major risk factor for CHD)>= 60 mg/dL: High HDL-cholesterol (negative risk factor for CHD)HDL-cholesterol is affected by a number of factors, e.g. smoking, exercise, hormones, sex and age. Serum or plasma cholesterol measurement (mass/volume)Ordered By: Zackery Huber on 07-01-2024 Cholesterol [Mass/Vol] 123 mg/dL <201 [facility] Comment on above: Cholesterol level, D esirable <200 mg/dLBorderline high cholesterol 200-239 mg/dLHigh cholesterol >=240 mg/dLRecommendations of the NCEP Adult Treatment Panel for the following risk-cutoff thresholds for the [place] population. Serum or plasma urea nitroge n measurement (mass/volume)Ordered By: Zackery Huber on 07-01-2024 Urea nitrogen [Mass/Vol] 18 mg/dL 4-19 [facility] Sodium levelOrdered By: Minesh Hopestalin on 07-01-2024 Sodium [Moles/Vol] 139 mmol/L 133-145 [facility] TSH DL <= 0.005 mIU/L QnOrde red By: Zackery Cecile on 07-01-2024 TSH Qn 1.240 uIU/mL 0.300-4.200 [facility] Thyroid Stim Hormone (TSH)on 07-01-2024 TSH 1.240 uIU/mL Normal 0.300-4.200 [facility] Comment on above: Order Comment: UNABL E TO DO PSA, TO EARLY Order Date: 01/07/24 Order Info: [id number] - CMP Order Info: [id number] - LIPID Order Info: [id number] - TSH Performed By: #### L 501.9520, L500.4100, L500.4050, L501.9985 #### [facility] [address] [place], [address] Total proteinOrdered By: Inna Hopestalin on 07-01-2024 Protein [Mass/Vol] 6.9 g/dL 5.9-8.4 [facility] Triglycerides measurementOrd ered By: Zackery Cecile on 07-01-2024 Triglyceride [Mass/Vol] 59 mg/dL <199 [facility] Comment on above: The drugs N-Acetylcy steine and Metamizole may falsely depress this assay. Normal range: <150 mg/dLBorderline High: 150-199 mg/dLHigh: 200-499 mg/dLVery High: >500 mg/dL PSA,Total - Annual Screenon 01-16-2024 PSA,TOT SCREEN 2.85 ng/mL Normal 0.00-4.00 [facility] Comment on above: Result Comment: This test was performed using the TPSA assay method for the [employer] (Livebook[employer]) chemistry system. Values obtained with different assay methods cannot be used interchangably. When changing PSA assays in the course of monitoring a patient, additional sequential testing should be carried out to confirm baseline values. Performed By: #### L 501.9910 #### [facility] [address] [place], [place], [address] Chest PA and Lateralon 08-12 Chest PA and Lateral [facility] [address] [place], [place] [address] Chest PA and Lateral MR#: [id number] Acct: [id number] Name: MELISA ACHARYA Rep #: [id number] : 1960 M 63 From: Brett Kelly MD PCP: Dr. Zackery Huber MD Status: REG CLI Study: Chest PA and Lateral Date of Exam: 08/13/23 Exam# [id number] Ordering Dr: Zackery Huber -[id number] STUDY: X-RAY CHEST REASON FOR EXAM: Male, 63 years old. Chronic chest congestion. TECHNIQUE: Frontal and lateral views of the chest on 3 images. COMPARISON: November 17, 2020 FINDINGS: Stable mild hyperinflation with scattered healed parenchymal granulomatous changes and scarring in both lower lobes. There is no demonstrated pleural abnormality. Stable borderline cardiomegaly. Normal mediastinum and kanu. Normal visualized pulmonary arteries. Aortic tortuosity unchanged. Diffuse thoracic osteopenia with mild diffuse spondylosis. Normal visualized ribs, clavicles, and shoulders. No abnormality of the visualized soft tissue structures of the upper abdomen. RAD/Chest PA and Lateral IMPRESSION: Stable chest with no acute or active cardiopulmonary disease. Electronically Signed: Brett Kelly MD at 10:40 EDT , CC: Dr. Zackery Huber MD Director College: Signed Normal [facility] Absolute lymphocyte countOrd ered By: Dr. Jacobo on 07-31-2022 Lymphocytes Auto (Unsp spec) [#/Vol] 3.26 10*3/uL 0.83-4.51 [facility] Basophil percentageOrdered B y: Dr. Jacobo on 07-31-2022 Basophils/100 WBC (Bld) 0.4 % 0-1 [facility] Chloride [Moles/Vol] 104 mmol/L 98-107 [facility] Eosinophils/100 WBC (Bld) 3.2 % 0-5 [facility] Glucose [Mass/Vol] 190 mg/dL 74-106 [facility] Comment on above: Fasting Glucose resu lt greater than or equal to 126 mg/dL suggests DIABETES MELLITUS per A.D.A. criteria. Neutrophils (Bld) [#/Vol] 7.2 10*3/uL 2.0-7.7 [facility] Neutrophils/100 WBC (Bld) 61.6 % 47-70 [facility] Potassium [Moles/Vol] 3.7 mmol/L 3.5-5.1 [facility] Sodium [Moles/Vol] 140 mmol/L 136-145 [facility] WBC (Bld) [#/Vol] 11.6 10*3/uL 4.4-11.0 [facility] Basophil percentage 0 SEEN /hpf 0-5 [facility] Bilirubin Test strip Ql (U)O rdered By: Dr. Jacobo on 07-31-2022 Bilirubin Ql (U) Negative Negative [facility] Blood erythrocytes count (nu mber/volume)Ordered By: Dr. Jacobo on 07-31-2022 RBC (Bld) [#/Vol] 5.02 10*6/uL 4.6-6.2 [facility] Blood hemoglobin measurement (mass/volume)Ordered By: Dr. Jacobo on 07-31-2022 Hemoglobin (Bld) [Mass/Vol] 15.5 g/dL 13.0-16.5 [facility] Blood lymphocytes/100 leukoc ytesOrdered By: Dr. Jacobo on 07-31-2022 Lymphocytes/100 WBC (Bld) 28.1 % 19-41 [facility] Blood monocytes/100 leukocyt esOrdered By: Dr. Jacobo on 07-31-2022 Monocytes/100 WBC (Bld) 6.5 % 0-10 [facility] Blood platelet mean volumeOr dered By: Dr. Jacobo on 07-31-2022 Platelet mean volume (Bld) [Entitic vol] 9.2 fL 6.2-12.0 [facility] Determination of erythrocyte mean corpuscular volume (MCV)Ordered By: Dr. Jacobo on 07-31-2022 MCV (RBC) [Entitic vol] 91.6 fL 80-94 [facility] Hematocrit Auto (Bld) [Volum e fraction]Ordered By: Dr. Jacobo on 07-31-2022 Hematocrit (Bld) [Volume fraction] 46.0 % 40-54 [facility] Ketones Test strip Ql (U)Ord ered By: Dr. Jacobo on 07-31-2022 Ketones Ql (U) Negative Negative [facility] - Chemistry and C hemistry - challengeOrdered By: Dr. Jacobo on 07-31-2022 CO2 [Moles/Vol] 29.0 mmol/L 21.0-32.0 [facility] Urea nitrogen/Creatinine [Mass ratio] 13.0 mg/mg 10-20 [facility] - Hematology and Cell countsOrdered By: Dr. Jacobo on 07-31-2022 Erythrocyte distribution width (RBC) [Entitic vol] 41.9 fL 35.1-43.9 [facility] Erythrocyte distribution width (RBC) [Ratio] 12.6 % 11.6-14.6 [facility] Immature granulocytes/100 WBC (Bld) 0.200 % 0.0-0.9 [facility] Comment on above: IG% - Immature Granu locytes (promyelocytes, myelocytes and metamyelocytes) > 1% indicates that a LEFT SHIFT is Present. MCH (RBC) [Entitic mass] 30.9 pg 27.0-32.0 [facility] Nucleated RBC/100 WBC (Bld) [Ratio] 0 % 0-5 [facility] MCHC Auto (RBC) [Mass/Vol]Or dered By: Dr. Jacobo on 07-31-2022 MCHC (RBC) [Mass/Vol] 33.7 g/dL 32-36 [facility] Mucus LM Ql (Urine sed)Order ed By: Dr. Jacobo on 07-31-2022 Mucus Ql (Urine sed) 0 SEEN /hpf [facility] Nitrite Test strip Ql (U)Ord ered By: Dr. Jacobo on 07-31-2022 Nitrite Ql (U) Negative Negative [facility] No Panel InformationOrdered By: Dr. Jacobo on 07-31-2022 Estimated Creatinine Clearance Calc 78.56 ml/min [facility] Estimated GFR (MDRD) Amer 98 mL/min >60 [facility] Comment on above: GFR Calc Estimated GFR (MDRD) Non-Af Amer 81 mL/min >60 [facility] Comment on above: Non- GFR Calc Platelets bldOrdered By: Dr. Jacobo on 07-31-2022 Platelets (Bld) [#/Vol] 310 10*3/uL 150-450 [facility] Protein Test strip Ql (U)Ord ered By: Dr. Jacobo on 07-31-2022 Protein Ql (U) Negative Negative [facility] Serum or plasma calcium quincy urement (mass/volume)Ordered By: Dr. Jacobo on 07-31-2022 Calcium [Mass/Vol] 9.8 mg/dL 8.5-10.1 [facility] Serum or plasma creatinine m easurement (mass/volume)Ordered By: Dr. Jacobo on 07-31-2022 Creatinine [Mass/Vol] 1.00 mg/dL 0.70-1.30 [facility] Comment on above: The validity of the calculated GFR & GFRAA in patients over 70 years has not been determined. Clinical correlation is essential. Serum or plasma urea nitroge n measurement (mass/volume)Ordered By: Dr. Jacobo on 07-31-2022 Urea nitrogen [Mass/Vol] 13 mg/dL 7-18 [facility] Squamous epithelial cells de tection in urine sediment by light microscopyOrdered By: Dr. Jacobo on 07-31-2022 Epithelial cells.squamous LM Ql (Urine sed) 0 SEEN /hpf 0-5 [facility] Thin prep Papanicolaou smear with manual screeningOrdered By: Dr. Jacobo on 07-31-2022 Thin prep Papanicolaou smear with manual screening 7 5-15 [facility] Urine blood detectionOrdered By: Dr. Jacobo on 07-31-2022 RBC Ql (U) Negative Negative [facility] RBC Ql (U) 0 SEEN /hpf 0-5 [facility] Urine clarityOrdered By: Dr. Jacobo on 07-31-2022 Clarity (U) Clear Clear [facility] Urine color determinationOrd ered By: Dr. Jacobo on 07-31-2022 Color (U) Yellow Yellow [facility] Urine glucose detectionOrder ed By: Dr. Jacobo on 07-31-2022 Glucose Ql (U) Normal mg/dl Normal [facility] Urine leukocyte esterase det ection by dipstickOrdered By: Dr. Jacobo on 07-31-2022 Leukocyte esterase Test strip Ql (U) Negative Negative [facility] Urine pHOrdered By: Dr. Suzanne tompkins on 07-31-2022 pH (U) 6.5 [pH] 5.0 - 8.0 [facility] Urine sediment bacteria coun t by microscopy (number/high power field)Ordered By: Dr. Jacobo on 07-31-2022 Bacteria LM.HPF (Urine sed) [#/Area] 0 /[HPF] None Seen [facility] Urine specific gravity measu rementOrdered By: Dr. Jacobo on 07-31-2022 Specific gravity (U) [Rel density] 1.010 1.002-1.030 [facility] Urobilinogen Auto test strip Ql (U)Ordered By: Dr. Jacobo on 07-31-2022 Urobilinogen Ql (U) Normal mg/dl Normal [facility] Basophil percentageon 2021 Bilirubin [Mass/Vol] 0.60 mg/dL 0.20-1.00 [facility] Work Phone: Comment on above: For patients on eltr ombopag therapy, use of Dimension [place] TBIL is not recommended. Chloride [Moles/Vol] 107 mmol/L 98-107 [facility] Work Phone: Cholesterol [Mass/Vol] 124 mg/dL <200 [facility] Work Phone: Comment on above: <200 mg/dL Desirable 200-240 mg/dL Borderline >240 mg/dL High Risk Glucose [Mass/Vol] 108 mg/dL 74-106 [facility] Work Phone: Comment on above: Fasting Glucose resu lt from 100 to 125 mg/dL suggests IMPAIRED HOMEOSTASIS per A.D.A. criteria. Potassium [Moles/Vol] 4.1 mmol/L 3.5-5.1 [facility] Work Phone: Comment on above: Slight Hemolysis, Re sult may be falsely increased. Protein [Mass/Vol] 7.2 g/dL 6.4-8.2 [facility] Work Phone: Sodium [Moles/Vol] 140 mmol/L 136-145 [facility] Work Phone: Triglyceride [Mass/Vol] 74 mg/dL <199 [facility] Work Phone: Comment on above: The drugs N-Acetylcy steine and Metamizole may falsely depress this assay.Serum Triglycerides Reference Interval Normal <150 mg/dL Borderline high 150 - 199 mg/dL High 200 - 499 mg/dL Very High > or = 500 mg/dL Laboratory - Chemistry and C hemistry - challengeon 10-25-2021 ALP [Catalytic activity/Vol] 93 U/L 45-117 [facility] Work Phone: ALT [Catalytic activity/Vol] 30 U/L 16-61 [facility] Work Phone: CO2 [Moles/Vol] 26.0 mmol/L 21.0-32.0 [facility] Work Phone: Cobalamin (Vitamin B12) [Mass/Vol] 223 pg/mL 211-911 [facility] Work Phone: Globulin (S) [Mass/Vol] 3.7 g/dL 2.2-4.2 [facility] Work Phone: Urea nitrogen/Creatinine [Mass ratio] 15.6 mg/mg 10-20 [facility] Work Phone: No Panel Informationon 10-25 Estimated GFR (MDRD) Amer 133 mL/min >60 [facility] Work Phone: Comment on above: GFR Calc Estimated GFR (MDRD) Non-Af Amer 110 mL/min >60 [facility] Work Phone: Comment on above: Non- GFR Calc Thyroid Stimulating Hormone (TSH) 1.15 uIU/mL 0.358-3.74 [facility] Work Phone: Serum or plasma albumin quincy urement (mass/volume)on 10-25-2021 Albumin [Mass/Vol] 3.5 g/dL 3.2-5.0 [facility] Work Phone: Serum or plasma albumin/glob ulin mass ratioon 10-25-2021 Albumin/Globulin [Mass ratio] 0.9 {ratio} 0.9-2.4 [facility] Work Phone: Serum or plasma calcium quincy urement (mass/volume)on 10-25-2021 Calcium [Mass/Vol] 9.2 mg/dL 8.5-10.1 [facility] Work Phone: Serum or plasma cholesterol in HDL measurement (mass/volume)on 10-25-2021 Cholesterol in HDL [Mass/Vol] 51 mg/dL >40 [facility] Work Phone: Comment on above: The drugs N-Acetylcy steine and Metamizole may falsely depress this assay. Reference Range HDL <40 mg/dL Low HDL Cholesterol HDL >or= 60 mg/dL High HDL Cholesterol Serum or plasma cholesterol in VLDL measurement (mass/volume)on 10-25-2021 Cholesterol in VLDL [Mass/Vol] 15 mg/dL 5-40 [facility] Work Phone: Serum or plasma creatinine m easurement (mass/volume)on 10-25-2021 Creatinine [Mass/Vol] 0.77 mg/dL 0.70-1.30 [facility] Work Phone: Comment on above: The validity of the calculated GFR & GFRAA in patients over 70 years has not been determined. Clinical correlation is essential. Serum or plasma low density lipoprotein (LDL) cholesterol measurement (mass/volume)on 10-25-2021 Cholesterol in LDL [Mass/Vol] 58 mg/dL 0-130 [facility] Work Phone: Serum or plasma urea nitroge n measurement (mass/volume)on 10-25-2021 Urea nitrogen [Mass/Vol] 12 mg/dL 7-18 [facility] Work Phone: Thin prep Papanicolaou smear with manual screeningon 10-25-2021 Thin prep Papanicolaou smear with manual screening 12 U/L 15-37 [facility] Work Phone: Comment on above: Slight Hemolysis, Re sult may be falsely increased. Thin prep Papanicolaou smear with manual screening 7 5-15 [facility] Work Phone: Vital Signs Date Time Vital Sign Value Performing Clinician Oumar lity 07-31-2022 21:11-0400 Respiratory rate 16 /min [facility] 07-31-2022 19:42-0400 Body height 175.26 cm [facility] 07-31-2022 19:42-0400 Body mass index (BMI) [Ratio] 35.6 kg/m2 [facility] 07-31-2022 19:42-0400 Body temperature 97.6 [degF] [facility] 07-31-2022 19:42-0400 Body weight 109.49 kg [facility] 07-31-2022 19:42-0400 Diastolic blood pressure 77 mm[Hg] [facility] 07-31-2022 19:42-0400 Heart rate 80 /min [facility] 07-31-2022 19:42-0400 SaO2% (BldA) [Mass fraction] 95 % [facility] 07-31-2022 19:42-0400 Systolic blood pressure 152 mm[Hg] [facility] Encounters Encounter Date Encounter Type Care Provider Facility Start: 08-05-2024 ambulatory Wesley Oseguera lity:[facility] Start: 08-04-2024 Encounter for other preprocedural examination Wesley Hall [facility] Start: 08-03-2024 ambulatory Wesley Hall Faci lity:[facility] Start: 07-16-2024 End: 07-16-[address] Zackery Huber MD Work Phone: [facility] Work Phone: Start: 07-16-2024 End: 07-16-[address] Wesley Hall MD -Cat Scan [facility] Work Phone: Start: 07-16-2024 End: 07-16-2024 ambulatory Wesley Hall Facility:[facility] Start: 07-01-2024 End: 07-01-[address] Zackery Huber MD Work Phone: [facility] Work Phone: Start: 07-01-2024 End: 07-01-[address] Zackery Huber MD -Laboratory Work Phone: Start: 07-01-2024 End: 07-01-2024 ambulatory Zackery Huber Facility:[facility] Start: 01-16-2024 End: 01-16-2024 ambulatory [facility] Facility:[facility] Start: 08-13-2023 End: 08-13-2023 ambulatory [facility] Facility:[facility] Start: 07-31-2022 End: 07-31-2022 Emergency department patient visit [facility] Start: 10-25-2021 End: 10-25-2021 ambulatory [facility] Work Phone: Start: 10-25-2021 End: 10-25-2021 Patient encounter procedure [facility] Procedures Date Procedure Procedure Detail Performing Clinician Start: 07-16-2024 CT of abdomen and pe lvis without contrast Dr. Zackery Huber MD Work Phone: Start: 07-31-2022 CT of abdomen and pe lvis without contrast Plan of Treatment Date Care Activity Detail Author Patient Education ED Kidney Stone w/ Coli c [facility] Work Phone: Patient referral [facility] Work Phone: Payers Date Payer Category Payer Self-pay [id number] 2023 Unknown [id number] 2010 Unknown [employer] [id number] Private Health Insurance [id number] Unknown ANTHEM [id number] Unknown [id number] 2.16.8 [id number] Unknown [id number] 2.16.8 [id number] Unknown [id number] 2.16.8 [id number] Unknown [id number] 2.16.8 [id number] Unknown [id number] 2.16.8 [id number] Unknown [id number] 2.16.8 [id number] Social History Date Type Detail Facility Start: 07-13-2020 End: 07-31-2022 Tobacco smoking status NHIS Unknown if ever smoked [facility] Start: 1960 Sex Assigned At Male [facility] Start: 07-31-2022 Tobacco smoking stat us NHIS Never smoked tobacco (finding) [facility] Medical Equipment Procedure Code Equipment Code Equipment Origin al Text Equipment Identifier Dates CEMENT,BONE AZAEL H 1/2 BATCH FDA Start: 12-16-2019 TRIATHLON CRUCIA TE RETAIN FEMO FDA Start: 12-16-2019 TRIATHLON TRITAN TIB COMPONENT FDA Start: 12-16-2019 TRIATHLON X3 ASY M PATELLA FDA Start: 12-16-2019 TRIATHLON X3 TIB BEARING INSER FDA Start: 12-16-2019 CEMENT,BONE AZAEL H 1/2 BATCH FDA Start: 12-16-2019 TRIATHLON CRUCIA TE RETAIN FEMO FDA Start: 12-16-2019 TRIATHLON TRITAN TIB COMPONENT FDA Start: 12-16-2019 TRIATHLON X3 ASY M PATELLA FDA Start: 12-16-2019 TRIATHLON X3 TIB BEARING INSER FDA Start: 12-16-2019 CEMENT,BONE AZAEL H 1/2 BATCH FDA Start: 12-16-2019 TRIATHLON CRUCIA TE RETAIN FEMO FDA Start: 12-16-2019 TRIATHLON TRITAN TIB COMPONENT FDA Start: 12-16-2019 TRIATHLON X3 ASY M PATELLA FDA Start: 12-16-2019 TRIATHLON X3 TIB BEARING INSER FDA Start: 12-16-2019 CEMENT,BONE AZAEL H 1/2 BATCH FDA Start: 12-16-2019 TRIATHLON CRUCIA TE RETAIN FEMO FDA Start: 12-16-2019 TRIATHLON TRITAN TIB COMPONENT FDA Start: 12-16-2019 TRIATHLON X3 ASY M PATELLA FDA Start: 12-16-2019 TRIATHLON X3 TIB BEARING INSER FDA Start: 12-16-2019 Radiology Diagnostic study note 07-18-2024 Note Date & Type Note Facility 07-18-2024 Radiology Diagnostic study note [facility] [address] [place] [address] [id number] Abdomen/Pelvis without Cont MR#: [id number] Acct: [id number] Name: MELISA ACHARYA Rep #: [id number] : 1960 M 64 From: Jessenia Ahumada MD PCP: Dr. Zackery Huber MD Status: REG CLI Study:Abdomen/Pelvis without Cont Date of Exa m: 07/16/24 Exam# [id number] Ordering Dr: Nandini Hall MD PROCEDURE: ABDOMEN/PELVIS WITHOUT CONT 07/16/2024 REASON FOR EXAM: GROSS HEMATURIA TECHNIQUE: Abdomen and pelvis CT without intravenous contrast. Noncontrast technique limits evaluation of the abdominal and pelvic viscera. Coronal and Sagittal reconstruction series were provided. One or more dose reduction techniques were used (e.g., Automated exposure control, adjustment of the mA and/or kV according to patient size, use of iterative reconstruction technique). PATIENT PREPARATION: Per protocol COMPARISON: CT abdomen and pelvis 07/31/2022 FINDINGS: Lung bases: Unremarkable Liver: Normal size. No obvious mass. Gallbladder: Unremarkable Spleen: Normal size. Pancreas: Normal size. No surrounding inflammation. Adrenals: Unremarkable Kidneys: No hydronephrosis or stone. Bilateral simple cysts, including at the renal pelvises, are unchanged. Bladder: There is a calcification measuring 6 mm near the junction of the prostate and urinary bladder. Reproductive Organs: Prostatomegaly containing calcifications. Bowel: No obstruction or inflammation. Colonic diverticulosis. Normal appendix. Lymph nodes: No suspicious lymph node enlargement. Vasculature: Mild diffuse atherosclerotic calcifications are noted. Bones: Degenerative changes of the spine. Abdominal wall: Tiny fat containing umbilical hernia. CT/Abdomen/Pelvis without Cont IMPRESSION: 1. Calcification measuring 6 mm near the junction of the prostate and urinary bladder, favored to be prostatic in origin, with a urinary bladder stone less likely. 2. No renal stone or hydronephrosis. 3. Colonic diverticulosis. Reading Location: [id number] CC: Dr. Zackery Huber MD; Dr. Wesley Hall MD ~ Director College: Signed [facility] Discharge summary 07-31-2022 Note Date & Type Note Facility 07-31-2022 Discharge summary Note Date/Time July 31, 2022 7:54pm [facility] Medical Records Department [address] [place] [address] Emergency Department Summary 07/31/22 MR#: [id number] Acct: [id number] Name: MELISA ACHARYA Rep #:[id number] : 1960 62 From: Moris Jacobo MD PCP: Dr. Rajan Huber MD Status: REG ER Location: ED HPI History of Present Illness Chief Complaint: Flank Pain Informant: patient and spouse/S.O. Narrative Narrative: Presents with right flank pain. Patient has had kidney stones in the past. He has seen Dr. Hall and has had lithotripsy. But this has been a while. He started with pain over the weekend on Saturday. Saturday he was feeling little bit better. He was having some pain Saturday and Saturday at work. But then this evening it really increased. Its always been on the right flank and radiates between the right flank and the right groin. No trouble urinating. No fevers chills. Very mild nausea but no vomiting. No weakness numbness or tingling. No syncope or presyncope. [facility] Medical History Arthritis Bladder disease CPAP (continuous positive airway pressure) dependence Cyst Diabetes Dietary restriction High cholesterol History of bladder stone History of stress test Hypertension Non-smoker Prostate disease Home Medications atorvastatin 20 mg tablet 20 mg PO DAILY cholesterol 11/24/12 [History Last Taken 07/19/20] metformin 500 mg tablet 1,000 mg PO BIDCM diabetes 11/24/12 [History Last Taken 07/19/20] cholecalciferol (vitamin D3) 25 mcg (1,000 unit) tablet 1,000 unit PO DAILY supplement 12/02/19 [History Last Taken Unknown] lactase 3,000 unit tablet 3,000 unit PO .PRN lactose intolerant 12/02/19 [History Last Taken Unknown] lisinopril 5 mg tablet 5 mg PO DAILY bp 12/02/19 [History Last Taken 07/20/20] mecobalamin (vitamin B12) 1,000 mcg chewable tablet (B12 Active) mcg PO 07/31/22[History Last Taken Unknown] naproxen 500 mg tablet 500 mg PO BID #14 tabs 07/31/22 [Rx Last Taken Unknown] ondansetron 4 mg disintegrating tablet 4 mg PO Q8H PRN PRN Nausea #10 tabs 07/31/22 [Rx Last Taken Unknown] oxycodone-acetaminophen 5 mg-325 mg tablet 1 tab PO Q6H PRN PRN Pain 3 days #12 TABLETS 07/31/22 [Rx Last Taken Unknown] tamsulosin 0.4 mg capsule (Flomax) 0.4 mg PO DAILY #7 caps 07/31/22 [Rx Last Taken Unknown] Allergy/AdvReac Type Severity Reaction Status Date / Time No Known Allergies Allergy Verified 07/31/22 19:42 Surgical History History of tonsillectomy and adenoidectomy History of total knee arthroplasty Hx of colonoscopy Hx of fasciotomy Hx of foot surgery Social History Smoking Status: Never smoker ROS ROS ED ROS Narrative A complete review of systems was performed and is negative except as documented in the history of present illness. Some specific details below. Constitutional: No recent fevers or chills. EYE: No visual complaints or pain. ENT: No difficulty swallowing. No swelling. No pain. CV: No chest pain or palpitations. Respiratory: No dyspnea. No hemoptysis. No difficulty taking breaths. GI: Please see history of present illness. : No frequency dysuria or hematuria. Also see history of present illness and does have a history of stones. He has been drinking a lot of fluids but is having good urine output with that. Musculoskeletal: No recent trauma. No pains. Skin: No rash. Nondiaphoretic. Neuro: No weakness or numbness. Endocrine: No polyuria or polydipsia. EXAM Physical Exam Narrative Exam Narrative: CONSTITUTIONAL: Patient is nontoxic in appearance. The patient looks mildly uncomfortable. HEENT: No notable trauma. Mucous membranes moist. EYES: No conjunctival injection. CARDIOVASCULAR: Regular rate. Regular rhythm. No notable murmur. No JVD. RESPIRATORY: No respiratory distress. Breathing is unlabored. No wheezes. No rhonchi. No rales. No pain with a deep breath. GASTROINTESTINAL: Mild obesity but not distended. Bowel sounds are normal. No tenderness. No guarding. No rebound. No palpable mass. No bruit. GENITOURINARY: No tenderness over the bladder. He does have right-sided CVA tenderness. But no skin changes or rash. MUSCULOSKELETAL: Atraumatic. No peripheral edema. NEUROLOGICAL: Patient is alert and appropriate. No focal deficit noted. SKIN: No noted rashes. No diaphoresis. PSYCHIATRIC: Patient is calm. Mood is appropriate. Const Vital Signs: 07/31/22 19:42 Temperature 97.6 F L Temperature Source Temporal Pulse Rate 80 Respiratory Rate 16 Blood Pressure 152/77 H Blood Pressure Mean 102 Pulse Ox 95 MDM MDM MDM Narrative Medical decision making narrative: Patient CBC shows minimal nonspecific elevation of white count. Remainder of CBC is normal. Electrolytes show no acute electrolyte abnormalities or kidney dysfunction. Glucose was mildly up at 190. Urinalysis shows no sign of infection. No blood is actually seen at this time. My independent reading patient's CT scan of the abdomen does show what appears to be a stone really perch within the wall of the bladder. There appears to be a little bit of the fullness in the bladder in that area but this may be overlying with prostate. There is no significant hydroureter ureter. Final reading pending at this time. Final reading shows really normal CT. However, I do see a calcification near the base of the bladder that is consistent with his patient's past and current history and his symptoms. I think this likely does represent a stone. But he isable to urinate. No sign of infection. We will have him follow-up with his urologist. He has urine strainer at home. We will write for meds for pain. Heis doing better at this time. We discussed returning with worsening pain, vomiting, fevers, inability to urinate or other complaints. Lab Data Attestation: I reviewed the patient's lab results. Labs: Laboratory Results - last 24 hr 07/31/22 07/31/22 07/31/22 19:49 19:53 19:53 WBC 11.6 H RBC 5.02 Hgb 15.5 Hct 46.0 MCV 91.6 MCH 30.9 MCHC 33.7 RDW Std Deviation 41.9 RDW Coeff of Quita 12.6 Plt Count 310 MPV 9.2 Immature Gran % (Auto) 0.200 Neut % (Auto) 61.6 Lymph % (Auto) 28.1 Otoe % (Auto) 6.5 Eos % (Auto) 3.2 Baso % (Auto) 0.4 Absolute Neuts (auto) 7.2 Absolute Lymphs (auto) 3.26 Nucleated RBC % 0 Sodium 140 Potassium 3.7 Chloride 104 Carbon Dioxide 29.0 Anion Gap 7 BUN 13 Creatinine 1.00 Estim Creat Clear Calc 78.56 Est GFR (MDRD) Af Amer 98 Est GFR (MDRD) Non-Af 81 BUN/Creatinine Ratio 13.0 Glucose 190 H Calcium 9.8 Urine Color Yellow Urine Clarity Clear Urine pH 6.5 Ur Specific Worth 1.010 Urine Protein Negative Urine Glucose (UA) Normal Urine Ketones Negative Urine Occult Blood Negative Urine Nitrite Negative Urine Bilirubin Negative Urine Urobilinogen Normal Ur Leukocyte Esterase Negative Urine RBC 0 SEEN Urine WBC 0 SEEN Ur Squamous Epith Cells 0 SEEN Urine Bacteria 0 SEEN Urine Mucus 0 SEEN Radiography Diagnostic Testing: Clinical Impression(s) from Imaging Studies Abdomen/Pelvis CT 07/31/22 19:51 IMPRESSION: No acute findings in the abdomen or pelvis. Electronically Signed: Rodney Truong MD at 20:36 EDT Reading Location ID and State: [facility] / [place] Tel , Service support , Discharge Plan Triage Chief Complaint: Flank Pain ED Provider: Moris Jacobo Dx/Rx/DC Orders Clinical Impression: Bladder stone, Acute right flank pain Instructions: ED Kidney Stone w/ Colic Prescriptions: New oxycodone-acetaminophen [oxycodone-acetaminophen] 5-325 mg tablet 1 tab PO Q6H PRN PRN (Reason: Pain) 3 Days Qty: 12 0RF ondansetron [ondansetron] 4 mg tablet,disintegrating 4 mg PO Q8H PRN PRN (Reason: Nausea) Qty: 10 0RF naproxen 500 mg tablet 500 mg PO BID Qty: 14 0RF tamsulosin [Flomax] 0.4 mg capsule 0.4 mg PO DAILY Qty: 7 0RF No Action metformin 500 MG tablet 1,000 mg PO BIDCM atorvastatin 20 MG tablet 20 mg PO DAILY lisinopril 5 MG tablet 5 mg PO DAILY cholecalciferol (vitamin D3) 1,000 UNIT tablet 1,000 unit PO DAILY lactase 3,000 UNIT tablet 3,000 unit PO .PRN mecobalamin (vitamin B12) [B12 Active] 1,000 mcg Tablet,Chewable PO Primary Care Provider: Rajan Huber Referrals: Rajan Huber MD [Primary Care Provider] - Wesley Hall MD [Med Staff - Active Staff] - 2 Days Disposition Disposition: Home, Self Care What to do if you have Problems For any increased pain, shortness of breath, bleeding, nausea or vomiting, chestpain, or any unexpected problems, contact your Primary Care Provider. Call [facility] ([phone]) or report to the closest Emergency Room. Call 911 if necessary. 07/31/222056 <Electronically signed by Moris Jacobo MD> Cosigner Signature (if applicable): CC: Dr. Rajan Huber MD ~ Signed [facility] Work Phone: Evaluation note Note Date & Type Note Facility Evaluation note No assessment information availa ble [facility] Work Phone: Reason for referral (narrative) Note Date & Type Note Facility Reason for referral (narrative) No reason for referral information available [facility] Work Phone: Advance Directives No Advanced Directives Records Found Advance Directive Response Recorded Date/ Time Advance Directives Yes November 24, 2012 9:00am Living Will Yes July 20, 2020 1 2:42pm Power of Trim Technician Yes July 20, 2020 12:42pm Advance Directive Response Recorded Date/ Time Advance Directives Yes November 24, 2012 9:00am Living Will Yes July 31, 2022 7:52pm Power of Trim Technician Yes July 31 7:52pm Name of Medical Power of Trim Technician Irais July 31, 2022 7:52pm Advance Directive Response Recorded Date/ Time Advance Directives Yes November 24, 2012 9:00am Chief Complaint and Reason for Visit Chief Complaint KIDNEY STONE Chief Complaint Admit Date INT LABS July 01, 2024 5:52a m Chief Complaint Admit Date INT LABS July 01, 2024 5:52a m Gross hematuria July 16, 2024 6:29p m Summary Purpose Family History No Family History Records Found Additional Source Comments Goals (unrecognized section and content) Goals may be documented in a n alternate sectionGoals may be documented in an alternate sectionGoals may be documented in an alternate sectionGoals may be documented in an alternate section Care Teams (unrecognized sec tion and content) Team Status: Active Member Role Status Dates Dr. Rajan Huber MD Family Provider Active Dr. Rajan Huber MD Primary Care Provider Activ e Team Status: Inactive Member Role Status Dates Dr. Rajan Huber MD Primary Care Provider Activ e Dr. Moris Jacobo MD Emergency Provider Active Team Status: Active Member Role Status Dates Dr. Zackery Huber MD Family Provider Active Dr. Zackery Huber MD Primary Care Provider Acti ve Team Status: Inactive Member Role Status Dates Dr. Zackery Huber MD Primary Care Provider Acti ve Start: July 01, 2024 End: July 01, 2024 Dr. Zackery Huber MD Attending Provider Active Start: July 01, 2024 End: July 01, 2024 Dr. Zackery Huber MD Referring Provider Active Start: July 01, 2024 End: July 01, 2024 Team Status: Active Member Role Status Dates Dr. Zackery Huber MD Primary Care Provider Acti ve Team Status: Inactive Member Role Status Dates Dr. Zackery Huber MD Primary Care Provider Acti ve Start: July 16, 2024 End: July 16, 2024 Dr. Wesley Hall MD Attending Provider Active Start: July 16, 2024 End: July 16, 2024 Dr. Wesley Hall MD Referring Provider Active Start: July 16, 2024 End: July 16, 2024 (unrecognized sect ion and content) No Status Records Found INFORMATION SOURCE (unrecogn ized section and content) DATE CREATED AUTHOR 08/04/2024 [facility] FOR RECORDS PERTAINING TO PATIENTS WHO ARE OR HAVE BEEN ENROLLED IN A CHEMICAL DEPENDENCY/SUBSTANCEABUSE PROGRAM, SOME INFORMATION MAY BE OMITTED. This clinical summary was aggregated from multiple sources. Caution should be exercised in using it in the provision of clinical care. This summary normalizes information from multiple sources, and as a consequence, information in this document may materially change the coding, format and clinical context of patient data. In addition, data may be omitted in some cases. CLINICAL DECISIONS SHOULD BE BASED ON THE PRIMARY CLINICAL RECORDS. [employer] provides no warranty or guarantee of the accuracy or completeness of information in this document.
--- NOTE | 2024-08-05 18:37 | NURSING ---
Pt was able to sit at the end of the bed for 1 min and then able to stand for about 2 min. PT felt okay enough to walk to the chair that was in the corner of the room and now is sitting in chair.
[2024-08-05] MEDS: Ciprofloxacin 400 MG/200 ML BAG 200 MG IV (21:11)
[2024-08-05] MEDS: Atorvastatin Calcium 20 MG Tablet PO (21:11)
[2024-08-05] MEDS: Docusate Sodium 100 MG Capsule 200 MG PO (21:11)
[2024-08-06] MEDS: 0.9% Normal Saline (1000mL) 1,000 ML 125 ML IV (01:53)
[2024-08-06 03:55] VITALS: BP 125/66; PULSE 76; RESP 16; TEMP 36.6; O2SAT 98
[2024-08-06 06:58] LABS: Bedside Glucose 131 mg/dL (74-106)
--- NOTE | 2024-08-06 07:42 | PCM.PN.GU ---
Subjective Subjective s/p turp doing okay up out of bed, no issue d/c silva possible home Objective Data Objective Data Vital Signs: Vital Signs Temp Pulse Resp BP Pulse Ox O2 Del Method O2 Flow Rate 97.8 F 76 16 125/66 H 98 Nasal Cannula 2 08/06/24 03:55 08/06/24 03:55 08/06/24 03:55 08/06/24 03:55 08/06/24 03:55 08/06/24 03:55 08/06/24 03:55 Oxygen Flow Rate (L/min) 2 Oxygen Delivery Method Nasal Cannula Weight: 100 kg Body Mass Index (BMI) 32.5 Intake & Output: Intake and Output for Last 24 Hours 08/04/24 08/05/24 08/06/24 23:59 23:59 23:59 Intake Total 852.75 / 852.75 462.5 / 462.5 Output Total 1355 / 1355 300 / 300 Balance -502.25 / -502.25 162.5 / 162.5 Lab / Micro Data 08/05/24 10:00 Labs: Laboratory Results - last 24 hr 08/05/24 10:00: WBC 14.5 H, RBC 4.27 L, Hgb 13.2, Hct 39.5 L, MCV 92.5, MCH 30.9, MCHC 33.4, RDW Std Deviation 42.3, RDW Coeff of Quita 12.4, Plt Count 275, MPV 9.6 08/05/24 10:05: POC Glucose 106 08/05/24 16:56: POC Glucose 173 H 08/06/24 06:39: POC Glucose 131 H
[2024-08-06 07:55] LABS: Absolute Lymphocyte Count 1.56 X10^3/uL (0.83-4.51); Absolute Neutrophil Count 12.2 X10^3/uL (2.0-7.7); Basophil# 0.02 X10^3/uL; Basophil% 0.1 % (0-1); Eosinophil# 0.11 X10^3/uL; Eosinophils% 0.7 % (0-5); Hematocrit 40.5 % (40-54); Hemoglobin 13.7 g/dL (13.0-16.5); Lymphocyte # 1.56 X10^3/ul (0.83-4.51); Lymphocyte % 10.4 % (19-41); Mean Corp Hgb Conc 33.8 g/dL (32-36); Mean Corpuscular Hgb 31.7 pg (27.0-32.0); Mean Corpuscular Volume 93.8 fL (80-94); Mean Platelet Vol. 9.8 fl (6.2-12.0); Monocyte# 1.07 X10^3/uL; Monocyte% 7.1 % (0-10); NRBC Flagged by Analyzer 0 % (0-5); Neutrophil # 12.21 X10^3/uL (2.7-7.7); Neutrophil % 81.4 % (47-70); Platelet Count 294 K/mm3 (150-450); RBC Distribution Width CV 12.2 % (11.6-14.6); RBC Distribution Width SD 42.8 fl (35.1-43.9); Red Blood Count 4.32 M/mm3 (4.6-6.2)
--- NOTE | 2024-08-06 08:01 | OP.PCM_ITS ---
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 Type of Anesthesia: General RN Documented Start/Stop Times: Operation Date: 08/05/24 11:30 Case Time Into Pre-Op 08/05/24 09:33 Out of Pre-Op 08/05/24 12:08 Anesthesia Start 08/05/24 12:11 Into Room 08/05/24 12:11 Procedure Start 08/05/24 12:22 Procedure End 08/05/24 13:23 Anesthesia End 08/05/24 13:28 Out of Room 08/05/24 13:28 Into Recovery 08/05/24 13:30 Out of Recovery 08/05/24 15:04 Procedure Start Time: 12:22 Procedure Stop Time: 13:23 Select all DRAINS/GRAFTS/IMPLANTS that apply: Drains Drain details: 3 way silva 22fr Estimated Blood Loss: minimal Specimen collected: Yes Description of specimen(s) removed: prostate tissue Description of surgery: patient taken back to the opeerative this week induction anesthesia place in dorsal lithotomy position, went into the bladder with a 26 flow continues flow resect the scope and then you the laser bridge diapers laser the stone those in the bladder stone is about 1 cm in size after laser and is in a switched over to the resect the scope and hit a very large obstructive prostate and a significant amount a regrowth it surgery about five years ago [place] second all the tissue had a nice wide open channel sphincter was intact had a good flow left and right ureter orfice with uninjured but a catheter bladder continues irrigation taken back to the PACU in stable condition successful resection of the prostate completely and laser bladder stone Surgical Findings: bladder stone laser completely removed prostate resected completely Complications Complications: No Admit VTE Documentation VTE Present on Admission: No VTE Mechan Device Prophylaxis: SCD's VTE Pharm Prophylaxis ordered?: No
[2024-08-06 08:41] LABS: Anion Gap 11 (5-15); BUN 14 mg/dL (4-19); Calcium,Total 8.6 mg/dL (7.6-11.0); Carbon Dioxide 22.6 mmol/L (21.0-32.0); Chloride 105 mmol/L (98-108); Creatinine, Serum 0.76 mg/dL (0.70-1.20); EST Glomerular Filtration Rate 102 (>60); Estimated Creatinine Clearance 117.48 ml/min (50-250); Glucose 125 mg/dL (70-99); Potassium 4.4 mmol/L (3.3-5.1); Sodium Level 139 mmol/L (133-145)
[2024-08-06 08:45] VITALS: BP 138/77; PULSE 78; RESP 17; TEMP 36.7; O2SAT 100
[2024-08-06] MEDS: Docusate Sodium 100 MG Capsule 200 MG PO (08:58)
[2024-08-06] MEDS: metFORMIN HCl 1,000 MG Tablet 1000 MG PO (08:58)
[2024-08-06] MEDS: Lisinopril 5 MG Tablet PO (08:58)
[2024-08-06] MEDS: 0.9% Saline Lock 10 ML Syringe IV (08:58)
[2024-08-06] MEDS: Ciprofloxacin 400 MG/200 ML BAG 200 MG IV (08:59)
--- NOTE | 2024-08-06 09:06 | NURSING ---
urine clear yellow, when balloon deflated then dark red urine in tubing.
[2024-08-06 13:43] VITALS: BP 126/63; PULSE 83; RESP 16; TEMP 36.7; O2SAT 96
--- NOTE | 2024-08-06 14:24 | DCINST_ITS ---
Discharge Instructions Diet Discharge Diet: No restrictions DC O2, CPAP, BIPAP needs Home O2 Discharge instructions: No Dressing / Incision Discharge Activity: Return to Normal Activity and May Not Drive (while taking narcotic pain medications.) Dressing / Incision Call your doctor if you observe: Fever of 101 or Higher Follow Up Care Please Follow Up With: Wesley Hall MD When: Call [phone] for an appointment Test Results: Test results from this visit will be discussed in further detail at your follow- up appointment, if applicable. Discharge Plan Admission Admit Date/Time: 08/05/24 13:20 Primary Reason for Your Visit: shahid Attending Provider: Wesley Hall Primary Care Provider: Zackery Huber Discharge Orders/Prescriptions Prescriptions: New ciprofloxacin HCl [Cipro] 500 mg tablet 500 mg PO BID Qty: 10 0RF Continued atorvastatin 20 MG tablet 20 mg PO QHS lisinopril 5 MG tablet 5 mg PO DAILY cholecalciferol (vitamin D3) 1,000 UNIT tablet 1,000 unit PO DAILY lactase 3,000 UNIT tablet 3,000 unit PO .PRN metformin 1,000 mg tablet 1,000 mg PO BID Ozempic 0.25 mg or 0.5 mg (2 mg/3 mL) pen injector 0.5 mg SUBCUT SA Discontinued ciprofloxacin HCl [Cipro] 500 mg tablet 500 mg PO BID Referrals / Follow Up: Zackery Huber MD [Primary Care Provider] - Wesley Hall MD [Med Staff - Active Staff] - Disposition Disposition (needs filled in before D/C Order can be placed): Home, Self Care
--- NOTE | 2024-08-06 14:46 | CASEMGMT ---
CHIO GLILESPIE NOTE: Discharge order is in. CHIO GILLESPIE to room earlier to day and spoke w/pt and . Noted Rx for Cipro 500 mg BID, 10 tabs (5 days) has been sent to [facility] retail pharmacy. Pt made aware and states he still has Cipro 500 mg @ home from Rx from Dr Hall he received on Saturday. He states he received 20 tabs on Saturday, has only taken 3, and has 17 tabs remaining. He states Dr Hall told him to just remaining tabs @ home. CHIO GILLESPIE spoke w/Dr Hall, made aware of how many tabs pt still has @ home. Dr Hall clarified that pt only needs to take Cipro 500 BID for 5 more days. Pt and made aware and voice appreciation. Pt and deny having any further discharge needs or concerns. Alsie BARTON RN, CM
--- NOTE | 2024-08-07 14:29 | PCM.DC.SUM ---
Providers Date of Admission: 08/05/24 Date of Discharge: 08/06/24 Primary Care Physician: Dr. Zackery Huber MD Reason For Visit: Cysto,TUR,Prostate,[employer] Medications at Discharge Home Medications atorvastatin 20 mg tablet 20 mg PO QHS cholesterol 11/24/12 cholecalciferol (vitamin D3) 25 mcg (1,000 unit) tablet 1,000 unit PO DAILY supplement 12/02/19 lactase 3,000 unit tablet 3,000 unit PO .PRN lactose intolerant 12/02/19 lisinopril 5 mg tablet 5 mg PO DAILY bp 12/02/19 metformin 1,000 mg tablet 1,000 mg PO BID 07/30/24 semaglutide 0.25 mg or 0.5 mg (2 mg/3 mL) subcutaneous pen injector (Ozempic) 0.5 mg subcut SA 07/30/24 ciprofloxacin HCl 500 mg tablet (Cipro) 500 mg PO BID #10 tabs 08/05/24 Hospital Course Operations TURP Weight / BMI Weight Weight: 100 kg Body Mass Index (BMI) 32.5 ABG / Lab / Microbiology Data 08/06/24 07:14 08/06/24 07:14 D/C Instructions Discharge Diet: No restrictions Call your doctor if you observe: Fever of 101 or Higher DC O2, CPAP, BIPAP Needs Home O2 Discharge instructions: No Please Follow Up With: Wesley Hall MD When: Call [phone] for an appointment Meaningful Use Info Meaningful Use Meaningful Use Diagnoses (Choose all that apply): None applicable Ischemic Stroke Statin Dosing Therapy Reference: STATIN DOSE THERAPY REFERENCE: * Patients > 75 years receive moderate or high dose statin therapy. * Patients 75 years or YOUNGER should receive HIGH intensity statin dose unless contraindicated. You will be required to document reason for non-treatment if statin daily dose does not meet guidelines. HIGH DOSE STATIN THERAPY DAILY Atorvastatin > than or = to 40 mg Rosuvastatin > than or = to 20 mg Amlodipine + Atorvastatin > than or = to 2.5/40 mg Ezetimibe + Simvastatin 10/80 mg Simvastatin 80mg Discharge Plan Admission Admit Date/Time: 08/05/24 13:20 Primary Reason for Your Visit: turp Attending Provider: Wesley Hall Primary Care Provider: Zackery Huber Discharge Orders/Prescriptions Prescriptions: New ciprofloxacin HCl [Cipro] 500 mg tablet 500 mg PO BID Qty: 10 0RF Continued atorvastatin 20 MG tablet 20 mg PO QHS lisinopril 5 MG tablet 5 mg PO DAILY cholecalciferol (vitamin D3) 1,000 UNIT tablet 1,000 unit PO DAILY lactase 3,000 UNIT tablet 3,000 unit PO .PRN metformin 1,000 mg tablet 1,000 mg PO BID Ozempic 0.25 mg or 0.5 mg (2 mg/3 mL) pen injector 0.5 mg SUBCUT SA Discontinued ciprofloxacin HCl [Cipro] 500 mg tablet 500 mg PO BID Referrals / Follow Up: Zackery Huber MD [Primary Care Provider] - Wesley Hall MD [Med Staff - Active Staff] - Disposition Disposition (needs filled in before D/C Order can be placed): Home, Self Care
--- NOTE | 2024-08-12 07:25 | PCM.HP.STD ---
HPI - General General Date of Admission: 08/05/24 Date of Service: 08/05/24 Chief Complaint: BPH with obstruction HPI Narrative MELISA ACHARYA, is a 64 M who presents for transurethral section of the prostate and laser bladder stones [facility] Medical History (Updated 08/11/24 @ 00:00 by Geraldine Mcqueen) Wears glasses Shortness of breath on exertion History of pain when walking Diabetes Arthritis Prostate disease Bladder disease High cholesterol Dietary restriction Non-smoker CPAP (continuous positive airway pressure) dependence History of stress test Hypertension Cyst History of bladder stone Home Medications ?Medication ?Instructions ?Recorded ?Last Taken ?Type atorvastatin 20 mg tablet 20 mg PO QHS cholesterol 11/24/12 08/04/24 History cholecalciferol (vitamin D3) 25 1,000 unit PO DAILY supplement 12/02/19 07/15/24 History mcg (1,000 unit) tablet lactase 3,000 unit tablet 3,000 unit PO .PRN lactose 12/02/19 Unknown History intolerant lisinopril 5 mg tablet 5 mg PO DAILY bp 12/02/19 08/04/24 History metformin 1,000 mg tablet 1,000 mg PO BID 07/30/24 08/04/24 History semaglutide 0.25 mg or 0.5 mg (2 0.5 mg subcut SA 07/30/24 07/25/24 History mg/3 mL) subcutaneous pen injector (Ozempic) ciprofloxacin HCl 500 mg tablet 500 mg PO BID #10 tabs 08/05/24 Unknown Rx (Cipro) Allergy/AdvReac Type Severity Reaction Status Date / Time No Known Allergies Allergy Verified 08/05/24 10:10 Surgical History (Updated 07/30/24 @ 10:35 by Edith Mccullough) Hx of transurethral resection of prostate Hx of colonoscopy Hx of foot surgery History of tonsillectomy and adenoidectomy Hx of fasciotomy History of total knee arthroplasty Social History Smoking Status: Never smoker Vital Signs Vital Signs Vital Signs: Weight Weight: 100 kg Body Mass Index (BMI) 32.5 Results Lab / Micro Data 08/06/24 07:14 08/06/24 07:14
== END 2024-08-06 14:52 | disposition home or self-care (01) ==
LOC: SDC 15:46 → MS3 15:46
PROVIDERS: Student in an Organized Health Care Education/Training Program; Admitting Provider Urology; PCP Family Medicine; Referring Provider Urology; Visit Provider Urology
PROC: (CPT 52601; principal; 2024-08-05 11:20)
DX: N21.0 Calculus in bladder (principal); E11.9 Type 2 diabetes mellitus without complications; I10 Essential (primary) hypertension; E78.00 Pure hypercholesterolemia, unspecified; Z79.899 Other long term (current) drug therapy; Z79.84 Long term (current) use of oral hypoglycemic drugs; N40.1 Benign prostatic hyperplasia with lower urinary tract symptoms; N13.8 Other obstructive and reflux uropathy
CPT/HCPCS: 52601; 52317; 00914; 36415; 80048; 82962; 85025; 85027; 88305; 93005; 96361; 96365; 96366; 99221; A4216; G0378; J0744; J2405